=== PATIENT | female | born 1980 | race Two or more races ===

== ENCOUNTER → 2020-04-05 09:59 | Outpatient (BNVA) | payer OTHER, SELFPAY | PROVIDERS: PCP Physician Assistant; Visit Provider Surgery Vascular Surgery | DX: I83.11 Varicose veins of right lower extremity with inflammation (principal); I83.92 Asymptomatic varicose veins of left lower extremity | CPT/HCPCS: 99213 ==

== ENCOUNTER → 2020-05-04 09:40 | Outpatient (BNVA) | payer OTHER, SELFPAY | PROVIDERS: PCP Physician Assistant; Visit Provider Surgery Vascular Surgery | DX: I83.11 Varicose veins of right lower extremity with inflammation (principal) | CPT/HCPCS: 36482 ==

== ENCOUNTER 2020-05-07 13:26 | Outpatient (REF) | payer OTHER, SELFPAY ==
--- NOTE | 2020-05-07 | US_ITS ---
EXAMINATION: US VENOUS ULTRASOUND WITH DOPPLER LOWER EXTREMITY, RIGHT CLINICAL INFORMATION: Status post right leg VenaSeal. COMPARISON: None TECHNIQUE: Ultrasound of the deep veins is performed from the hip to the calf with compression sonography and color and pulse Doppler assessment. Spectral analysis with color-flow imaging is performed. FINDINGS: There is normal venous compression and respiratory variation and augmented flow. The visualized common femoral vein, superficial femoral vein, profunda femoral vein, popliteal vein, and the trifurcation region shows no evidence of deep venous thrombosis. There is no significant popliteal fossa cyst. Incidentally noted is enlarged, thrombosed varicose vein in distal thigh. There is a 1.8 cm thrombus in the greater saphenous vein approximately 1.8 cm away from the superficial femoral venous junction. US/US venous duplex LE RT IMPRESSION: Enlarged and thrombosed varicose vein in right distal thigh. No evidence of DVT. There is thrombus visualized in greater saphenous vein approximately 1.8 cm away from superficial femoral venous junction status post VenaSeal procedure.
== END 2020-05-07 13:27 | disposition home or self-care (01) ==
LOC: HO.US 13:26
PROVIDERS: PCP Physician Assistant; Visit Provider Surgery Vascular Surgery
DX: M79.604 Pain in right leg (principal)
CPT/HCPCS: 93971

== ENCOUNTER → 2020-05-17 09:52 | Outpatient (BNVA) | payer OTHER, SELFPAY | PROVIDERS: PCP Physician Assistant; Visit Provider Surgery Vascular Surgery | DX: I83.11 Varicose veins of right lower extremity with inflammation (principal); Z98.890 Other specified postprocedural states | CPT/HCPCS: 99212 ==

== ENCOUNTER 2020-05-24 09:35 | Outpatient (REF) | payer OTHER, SELFPAY ==
--- NOTE | 2020-05-24 | MM_ITS ---
EXAMINATION: MM SCREENING DIGITAL BREAST TOMOSYNTHESIS, BILATERAL CLINICAL INFORMATION: Screening. Asymptomatic. No prior breast imaging. Age 40. The lifetime risk of breast cancer based on the Tyrer-Cuzick Model is 7%. COMPARISON: None (current study represents initial baseline exam). TECHNIQUE: Digital breast tomosynthesis is performed in both the craniocaudal and mediolateral oblique views along with computer-aided detection (CAD). Synthesized 2D images are generated from the tomosynthesis. FINDINGS: There are scattered areas of fibroglandular density (ACR BI-RADS breast composition Category b). There are no significant masses, abnormal calcifications, or other abnormalities. The axilla and skin contours are unremarkable. MM/MM tomosynthesis screening BI IMPRESSION: No mammographic evidence of malignancy. ASSESSMENT: BI-RADS 1: Negative RECOMMENDATION: Routine annual mammography screening. This patient's information was entered into a reminder system with a target due date for their next mammogram.
== END 2020-05-24 09:36 | disposition home or self-care (01) ==
LOC: HO.MAMMO 09:35
PROVIDERS: PCP Physician Assistant; Visit Provider Physician Assistant
DX: Z12.31 Encounter for screening mammogram for malignant neoplasm of breast (principal)
CPT/HCPCS: 77063; 77067

== ENCOUNTER 2020-05-27 17:24 | Emergency (ER) | payer OTHER, SELFPAY ==
--- NOTE | 2020-05-27 | ECG_ITS ---
Test Reason : REPEAT Blood Pressure : / mmHG Vent. Rate : 068 BPM Atrial Rate : 068 BPM P-R Int : 146 ms QRS Dur : 090 ms QT Int : 396 ms P-R-T Axes : 057 022 020 degrees QTc Int : 421 ms Normal sinus rhythm T wave abnormality, consider anterior ischemia Abnormal ECG When compared with ECG of 27-MAY-2020 17:30, No significant change was found Referred By: Clyde Rooney Electronically Signed By:PATRICE PENA MD
--- NOTE | 2020-05-27 | XR_ITS ---
EXAMINATION: XR CHEST CLINICAL INFORMATION: Chest pain. COMPARISON: None TECHNIQUE: 2 views of the chest were obtained. FINDINGS: The lungs are clear. The cardiomediastinal silhouette is normal in size. There is no pleural effusion or pneumothorax. No acute osseous abnormality. XR/XR chest 2V IMPRESSION: No acute cardiopulmonary findings.
--- NOTE | 2020-05-27 08:45 | ECG_ITS ---
Test Reason : CHEST PAIN Blood Pressure : / mmHG Vent. Rate : 085 BPM Atrial Rate : 085 BPM P-R Int : 132 ms QRS Dur : 086 ms QT Int : 374 ms P-R-T Axes : 051 014 036 degrees QTc Int : 445 ms Normal sinus rhythm with sinus arrhythmia Nonspecific T wave abnormality Abnormal ECG When compared with ECG of 01-OCT-2014 20:25, No significant change was found Referred By: Clyde Rooney Electronically Signed By:PATRICE PENA MD
[2020-05-27 19:00] VITALS: BP 132/72; PULSE 75; RESP 16; TEMP 35.7; O2SAT 99; BMI 46.0
--- NOTE | 2020-05-27 19:59 | ED_ITS ---
HPI - Chest Pain General Chief Complaint: Chest Pain Stated Complaint: Chest Pain Time Seen by Provider: 05/27/20 19:52 Source: patient Mode of arrival: ambulatory Limitations: no limitations History of Present Illness HPI narrative: patient presents to ED for chest pain on the left side that is worse on movement. Patient denies any shortness of breath, chest pain on inspiration, coughing up blood, fever, chills, swelling of lower extremities, calf pain, recent travel, recent surgery, any recent trauma. 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 Related Data Home Medications Medication Instructions Recorded Confirmed ibuprofen 800 mg tablet 800 mg PO TID 03/31/20 Previous Rx's Medication Instructions Recorded amoxicillin 1,000 mg PO Q12H #10 tab 05/28/20 doxycycline monohydrate 100 mg PO BID #14 cap 05/28/20 Allergies Allergy/AdvReac Type Severity Reaction Status Date / Time No Known Allergies Allergy Verified 05/27/20 19:00 Review of Systems Constitutional: Constitutional: Reports as per HPI, Reports no additional constitutional complaints and Reports anorexia Eyes: Eyes: Reports as per HPI and Reports no additional eye complaints ENT: Reports system reviewed and no additional complaints, except as documented and Reports as per HPI Cardiovascular: Cardiovascular: Reports as per HPI, Reports no additional cardiovascular complaints, Denies Abdominal Cramping after Meds, Denies Abdominal Distension, Reports chest pain, Denies dyspnea, Denies dyspnea on exertion, Denies orthopnea and Denies paroxysmal nocturnal dyspnea Respiratory: Respiratory: Reports as per HPI, Reports no additional respiratory complaints, Denies chest congestion, Denies cough, Denies pain on inspiration, Denies pain with cough, Denies dyspnea and Denies dyspnea on exertion Gastrointestinal: Gastrointestinal: Reports as per HPI and Reports no additional gastrointestinal complaints Musculoskeletal: Musculoskeletal: Reports no additional musculoskeletal complaints and Reports as per HPI Neurologic: Reports system reviewed and no additional complaints, except as documented and Reports as per HPI Psychiatric: Psychiatric: Reports no additional psychiatric complaints and Reports as per HPI PMF Past Medical History Surgical History Ankle fracture, right (~2011) H/O prior ablation treatment (~04/2020) Social History Social History Advance Directives: No Advance Directives Information Provided: Yes Physical Exam Vital Signs: Vital Signs: Last Vital Signs Temp 96.2 F L 05/27/20 19:00 Pulse 68 05/28/20 00:21 Resp 16 05/27/20 20:15 BP 120/64 05/28/20 00:21 Pulse Ox 98 05/28/20 00:21 Body Mass Index 46.0 Const: General: cooperative, healthy appearing, comfortable, no acute distres s, well developed, alert, awake and Physically active Orientation/consciousness: oriented to person, oriented to place, oriented to time and patient oriented x3 HENMT: Head: Yes normal to inspection and Yes No palpable skull fracture present Eyes: General: appearance normal, both eyes and all related structures Neck: Neck: Yes normal visual inspection and Yes full ROM Chest: Other: Left upper chest wall pain is worse on movement of torso and u pper extremity Chest palpation & inspection: normal inspection of the chest and tenderness ( Positive for left upper chest wall tenderness on palpation.) Resp: Effort & Inspection: normal respiratory effort, able to speak in complete sentences, no audible wheezes and no cough Auscultation: clear to auscultation bilaterally, no crackles, no rales, no rhonchi, no wheezes and breath sounds present Cardio: Jugular venous distension: no JVD Heart sounds: S1 normal heart sound present and S2 normal heart sound present GI: Inspection: Yes normal to inspection and No abdominal wall ecchymosis Palpation (GI): not soft, not firm, nontender, no guarding and not rigid : General: No CVA tenderness and Yes no CVA tenderness Back/Spine/Pelvis: Back: no CVA tenderness, No CVA tenderness and No back tenderness Skin: General skin exam: no rashes or lesions noted Neuro: General: oriented to person, oriented to place, oriented to time, patient oriented x3, gait normal and CN's II-XI intact bilaterally Cranial nerves: Yes CN's II-XII intact bilaterally Extrem: General: Yes normal to inspection and Yes full ROM Psych: Appearance: grossly normal, well kempt and not disheveled Course Course Course Narrative: patient states chest pain on movement began around 09:00 this morning. History physical exam indicate more muscular chest wall pain. Muscular chest wall strain. Patient will have EKG and basic labs including troponin. Not suspecting PE. PERC score is 0. Reevaluation(s) Reevaluation #1: Evaluation of patient's chart she had ultrasoundon on the 2nd of this month which showed great saphenous thrombus. D-dimer was elevated. So patient will be sent for chest CT a period Time: 22:29 Reevaluation #2: chest CT came back positive for pneumonia. Chest CT negative for PE. patient is swabbed for COVID-19. Patieint's chest pain resolved with toradol. Time: 23:56 MDM - Chest Pain MDM Narrative Medical decision making narrative: pneumonia Lab Data Result diagrams: 05/27/20 20:25 05/27/20 20:25 Labs: Lab Results 05/27/20 05/27/20 05/27/20 Range/Units 20:25 20:25 20:25 WBC 7.2 (4.8-10.8) X10*3/uL RBC 4.67 (4.20-5.50) X10*6/uL Hgb 13.3 (12.0-16.0) g/dl Hct 41.1 (37-47) % MCV 88.0 (80-98) fL MCH 28.5 (27.0-33.0) pg MCHC 32.4 (31.0-35.0) g/dl RDW 13.4 (11.0-16.0) % Plt Count 245 (160-400) X10*3/uL MPV 11.4 (9.4-12.3) fL Immature Gran % (Auto) 0.3 (0.0-0.4) % Neut % (Auto) 61.0 (45-73) % Lymph % (Auto) 30.2 (20-40) % [place] % (Auto) 7.5 (2-11) % Eos % (Auto) 0.6 (0-4) % Baso % (Auto) 0.4 (0-2) % Lymph # (Auto) 2.2 (1.2-4.9) X10*3/uL [place] # (Auto) 0.5 (0.1-1.2) X10*3/uL Eos # (Auto) 0.0 (0.0-0.4) X10*3/uL Baso # (Auto) 0.0 (0.0-0.2) X10*3/uL Abs Immat Gran (auto) 0.02 (0.00-0.03) X10*3/uL Absolute Neuts (auto) 4.4 (2.0-8.3) X10*3/uL Absolute Nucleated RBC 0.000 (0.0-0.012) X10*3/uL Nucleated RBC % (auto) 0.0 (0.0-0.2) /100WBC PT 11.8 (10.8-13.0) SEC INR 1.0 (0.9-1.1) APTT 32.8 (24.1-38.0) SEC D-Dimer 335 NG/ML Sodium 141 (135-145) mmol/L Potassium 3.9 (3.3-5.1) mmol/l Chloride 107 (96-108) mmol/L Carbon Dioxide 27 (22-29) mmol/L Anion Gap 11 L (12-20) BUN 15 (9-16) mg/dL Creatinine 0.78 (0.5-1.4) mg/dL Estim Creat Clear Calc 116.5 Estimated GFR > 60 Random Glucose 91 (60-115) mg/dL Calcium 8.9 (8.4-10.2) mg/dL Total Bilirubin 0.3 (0.0-1.0) mg/dL AST 12 (5-31) U/L ALT 13 (0-31) U/L Alkaline Phosphatase 65 (39-117) U/L Troponin I High Sens (<3.5-17.0) ng/L Total Protein 6.7 (6.5-8.0) g/dL Albumin 4.0 (3.5-5.0) g/dL Beta HCG, Quant mIU/mL 05/27/20 05/27/20 Range/Units 20:25 20:25 WBC (4.8-10.8) X10*3/uL RBC (4.20-5.50) X10*6/uL Hgb (12.0-16.0) g/dl Hct (37-47) % MCV (80-98) fL MCH (27.0-33.0) pg MCHC (31.0-35.0) g/dl RDW (11.0-16.0) % Plt Count (160-400) X10*3/uL MPV (9.4-12.3) fL Immature Gran % (Auto) (0.0-0.4) % Neut % (Auto) (45-73) % Lymph % (Auto) (20-40) % [place] % (Auto) (2-11) % Eos % (Auto) (0-4) % Baso % (Auto) (0-2) % Lymph # (Auto) (1.2-4.9) X10*3/uL [place] # (Auto) (0.1-1.2) X10*3/uL Eos # (Auto) (0.0-0.4) X10*3/uL Baso # (Auto) (0.0-0.2) X10*3/uL Abs Immat Gran (auto) (0.00-0.03) X10*3/uL Absolute Neuts (auto) (2.0-8.3) X10*3/uL Absolute Nucleated RBC (0.0-0.012) X10*3/uL Nucleated RBC % (auto) (0.0-0.2) /100WBC PT (10.8-13.0) SEC INR (0.9-1.1) APTT (24.1-38.0) SEC D-Dimer NG/ML Sodium (135-145) mmol/L Potassium (3.3-5.1) mmol/l Chloride (96-108) mmol/L Carbon Dioxide (22-29) mmol/L Anion Gap (12-20) BUN (9-16) mg/dL Creatinine (0.5-1.4) mg/dL Estim Creat Clear Calc Estimated GFR Random Glucose (60-115) mg/dL Calcium (8.4-10.2) mg/dL Total Bilirubin (0.0-1.0) mg/dL AST (5-31) U/L ALT (0-31) U/L Alkaline Phosphatase (39-117) U/L Troponin I High Sens < 3.5 (<3.5-17.0) ng/L Total Protein (6.5-8.0) g/dL Albumin (3.5-5.0) g/dL Beta HCG, Quant < 2 mIU/mL ECG Data ECG #1: Interpretation: normal sinus rhythm. Ventricular rate 68. Pr interval 146. QRS 90. T-wave inversions in anterior leads has been there since EKG in 2015. no new changes Discharge Plan Discharge Clinical Impression: Pneumonia Patient Disposition: Home, Self-Care Instructions: Pneumonia (ED) Additional Instructions: return to the ED for any chest pain, shortness of breath, coughing up blood, swelling of lower extremities, fever, chills, or any other concerning symptoms. recommend 14 days self-isolation if COVID test come back positive. If patient symptoms worsen please practice 14 days self-isolation and retesting if necessary. Prescriptions: New amoxicillin 500 mg tablet 1,000 mg PO Q12H Qty: 10 RF: 0 doxycycline monohydrate 100 mg capsule 100 mg PO BID Qty: 14 RF: 0 Referrals: Po,Sergio Razo MD [Primary Care Provider] - 2 days ( chest CT shows pneumonia. COVID swab pending) Stand Alone Forms: Work/School Release Interventions: ED Discharge Assessment Last Done: 05/28/20 00:28 Print Language: Welsh
--- NOTE | 2020-05-27 20:06 | XR_ITS ---
EXAMINATION: XR CHEST CLINICAL INFORMATION: Chest pain with movement. COMPARISON: Chest radiograph done earlier the same day. TECHNIQUE: Frontal view of the chest was obtained. FINDINGS: No significant abnormality is noted involving the heart, lungs, mediastinum, bony thorax or soft tissues. XR/XR chest 1V IMPRESSION: Unremarkable examination.
[2020-05-27 20:15] VITALS: BP 127/61; PULSE 73; RESP 16; O2SAT 98
[2020-05-27 20:33] LABS: MANUAL DIFF FLAG NO
[2020-05-27 20:34] LABS: Basophils Percent Auto 0.4 % (0-2); Eosinophils Percent Auto 0.6 % (0-4); Hematocrit 41.1 % (37-47); Hemoglobin 13.3 g/dl (12.0-16.0); Imm Gran Abs Auto 0.02 X10*3/uL (0.00-0.03); Imm Gran Pct Auto 0.3 % (0.0-0.4); Lymphocytes Absolute Auto 2.2 X10*3/uL (1.2-4.9); Lymphocytes Percent Auto 30.2 % (20-40); Mean Corpuscular HGB Conc 32.4 g/dl (31.0-35.0); Mean Corpuscular Hemoglobin 28.5 pg (27.0-33.0); Mean Platelet Volume 11.4 fL (9.4-12.3); Monocytes Absolute Auto 0.5 X10*3/uL (0.1-1.2); Monocytes Percent Auto 7.5 % (2-11); Neutrophils Absolute Auto 4.4 X10*3/uL (2.0-8.3); Platelet Count 245 X10*3/uL (160-400); Red Blood Count 4.67 X10*6/uL (4.20-5.50); Red Cell Distribution Width 13.4 % (11.0-16.0); White Blood Count 7.2 X10*3/uL (4.8-10.8)
[2020-05-27 20:43] LABS: Prothrombin Time 11.8 SEC (10.8-13.0)
[2020-05-27 20:45] LABS: Partial Thromboplastin Time 32.8 SEC (24.1-38.0)
[2020-05-27 20:57] LABS: Alanine Aminotransferase 13 U/L (0-31); Alkaline Phosphatase 65 U/L (39-117); Anion Gap 11 (12-20); Aspartate Amino Transferase 12 U/L (5-31); Bilirubin Total 0.3 mg/dL (0.0-1.0); Blood Urea Nitrogen 15 mg/dL (9-16); Calcium 8.9 mg/dL (8.4-10.2); Carbon Dioxide 27 mmol/L (22-29); Chloride 107 mmol/L (96-108); Creatinine Clr Calc Pharmacy 116.5; Estimated Glomerular Filt Rate > 60; Glucose Random 91 mg/dL (60-115); Potassium 3.9 mmol/l (3.3-5.1); Sodium 141 mmol/L (135-145); Total Protein 6.7 g/dL (6.5-8.0)
[2020-05-27 21:03] LABS: Troponin-I High Sensitivity < 3.5 ng/L (<3.5-17.0)
[2020-05-27 21:20] LABS: D Dimer 335 NG/ML; HCG Quantitative < 2 mIU/mL
--- NOTE | 2020-05-27 21:59 | CT_ITS ---
EXAMINATION: CT ANGIOGRAM CHEST WITH AND WITHOUT CONTRAST (CT PULMONARY ANGIOGRAM FOR PE) CLINICAL INFORMATION: Elevated D-dimer. Chest pain. Evaluate for a pulmonary embolism. COMPARISON: Chest radiograph done earlier the same day. TECHNIQUE: Prior to contrast administration, noncontrast localization images were obtained. Subsequently, multidetector volumetric imaging was performed from the thoracic inlet to below the diaphragms following the administration of 65 mL Omnipaque 350 intravenous contrast. No contrast reaction reported. Sagittal, coronal, and MIP oblique sagittal reformatted images were obtained on the CT workstation, uploaded to PACS, and reviewed. This CT examination was performed using dose optimization techniques as appropriate, variously including the following: *Automated exposure control. *Adjustment of mA and/or kV according to patient size (this includes techniques or standardized protocols for targeted exams where dose is matched to indication/reason for exam; i.e. extremities or head). *Use of iterative reconstruction technique. Total exam dose-length product 257 mGy-cm. FINDINGS: QUALITY OF STUDY/CONTRAST BOLUS: Suboptimal. PULMONARY ARTERIES: No central or segmental pulmonary emboli. THORACIC AORTA: No aneurysm or dissection. LUNG: Patchy ground-glass airspace opacities within the right lower lobe. Findings could represent an infectious or inflammatory process. The left lung is clear. Tiny left lower lobe calcified granulomas. No additional pulmonary nodule or mass. PLEURA: No pleural effusion or pneumothorax. MEDIASTINUM: No cardiomegaly. No pericardial effusion. Mildly enlarged posterior right hilar lymph node measuring 1.1 x 1.5 cm (axial image 24/54). No additional significant superior mediastinal or hilar lymphadenopathy. No evidence of septal bowing or right heart strain. CHEST WALL/AXILLA: No axillary or internal mammary lymphadenopathy. OSSEOUS STRUCTURES: No acute or suspicious osseous abnormality. UPPER ABDOMEN: Unremarkable. No reflux of contrast into the hepatic veins to suggest elevated right heart pressures. CT/CT angio chest PE protocol IMPRESSION: 1. No central or segmental pulmonary embolism. 2. Patchy ground-glass airspace opacities within the right lower lobe. Findings may represent an infectious or inflammatory process. Differential diagnosis includes early viral pneumonia. 3. Prominent right hilar lymph node measuring up to 1.1 x 1.5 cm, likely reactive to the right lower lobe pulmonary pathology. VTE: Negative.
[2020-05-27 22:00] VITALS: BP 124/61; PULSE 66; O2SAT 97
[2020-05-27] MEDS: iohexoL 350 MG/ML 100 ML INFUS..BTL IV (22:34)
--- NOTE | 2020-05-27 22:43 | PC.NURSE ---
PT REMAINS ALERT AND STATES MY PAIN IS NOT ANY WORSE . PT REMAINS ON MONITOR WITH HR 67. PT AWAITING FOR U/S.
[2020-05-27 22:44] VITALS: PULSE 69
[2020-05-27] MEDS: Ketorolac Tromethamine 30 MG/ML VIAL IVPUSH (23:05)
[2020-05-28 00:21] VITALS: BP 120/64; PULSE 68; O2SAT 98
== END 2020-05-28 00:28 | disposition home or self-care (01) ==
PROVIDERS: Physician Assistant; Emergency Provider Emergency Medicine; PCP Internal Medicine
DX: J18.9 Pneumonia, unspecified organism (principal); R07.9 Chest pain, unspecified; R05 Cough; Z20.828 Contact with and (suspected) exposure to other viral communicable diseases; Z79.899 Other long term (current) drug therapy
CPT/HCPCS: 36415; 71045; 71046; 71275; 80053; 84484; 84702; 85025; 85379; 85610; 85730; 93005; 96374; 99284; J1885; Q9967; U0003

== ENCOUNTER 2020-09-04 09:14 | Outpatient (REF) | payer OTHER, SELFPAY ==
[2020-09-05 20:37] LABS: C. trachomatis RNA TMA NOT DETECTED (NOT DETECTED); N. gonorrhoeae RNA TMA NOT DETECTED (NOT DETECTED)
== END 2020-09-04 09:15 | disposition home or self-care (01) ==
LOC: HO.LAB 09:14
PROVIDERS: PCP Physician Assistant; Visit Provider Obstetrics & Gynecology
DX: Z01.419 Encounter for gynecological examination (general) (routine) without abnormal findings (principal); Z20.2 Contact with and (suspected) exposure to infections with a predominantly sexual mode of transmission
CPT/HCPCS: 36415; 87491; 87591

== ENCOUNTER → 2020-09-25 07:45 | Outpatient (BNVA) | payer OTHER, SELFPAY | PROVIDERS: PCP Physician Assistant; Visit Provider Obstetrics & Gynecology | DX: O20.9 Hemorrhage in early pregnancy, unspecified (principal) | CPT/HCPCS: 99212 ==

== ENCOUNTER 2020-09-25 08:55 | Outpatient (REF) | payer OTHER, SELFPAY ==
--- NOTE | ~2020-09-25 | US_ITS ---
EXAMINATION: US OBSTETRICAL ULTRASOUND CLINICAL INFORMATION: Hemorrhage in early COMPARISON: None. LMP: 08/11/2020. Gestational age by maternal dates is 26 weeks 3 days. Estimated date of delivery by maternal dates is 05/18/2021. TECHNIQUE: Transabdominal and transvaginal pelvic ultrasound was performed. Transvaginal exam was performed for better visualization of the uterus and ovaries. FINDINGS: The uterus is normal in size and shape measures 10.3 x 5 x 5.5 cm in sagittal AP and transverse dimension. No intrauterine gestational sac is seen. Endometrial thickness measures 1.3 cm. No focal uterine lesion is seen. There are nabothian cysts in the cervix. The ovaries are normal-appearing. The ovaries are seen transabdominally only. The right ovary measures 3.1 x 1.5 x 1.6 cm and the left ovary measures 2.2 x 1.5 x 1.2 cm. There is trace fluid in the pelvis. US/US OB <= 14 weeks fetus IMPRESSION: No intrauterine seen. Normal-appearing ovaries. Trace fluid in the pelvis. Differential would include a very early intrauterine , ectopic and spontaneous . Correlation with quantitative beta hCG and follow-up OB ultrasound recommended.
--- NOTE | ~2020-09-25 | US_ITS ---
EXAMINATION: US OBSTETRICAL ULTRASOUND CLINICAL INFORMATION: Hemorrhage in early COMPARISON: None. LMP: 08/11/2020. Gestational age by maternal dates is 26 weeks 3 days. Estimated date of delivery by maternal dates is 05/18/2021. TECHNIQUE: Transabdominal and transvaginal pelvic ultrasound was performed. Transvaginal exam was performed for better visualization of the uterus and ovaries. FINDINGS: The uterus is normal in size and shape measures 10.3 x 5 x 5.5 cm in sagittal AP and transverse dimension. No intrauterine gestational sac is seen. Endometrial thickness measures 1.3 cm. No focal uterine lesion is seen. There are nabothian cysts in the cervix. The ovaries are normal-appearing. The ovaries are seen transabdominally only. The right ovary measures 3.1 x 1.5 x 1.6 cm and the left ovary measures 2.2 x 1.5 x 1.2 cm. There is trace fluid in the pelvis. US/US OB transvaginal IMPRESSION: No intrauterine seen. Normal-appearing ovaries. Trace fluid in the pelvis. Differential would include a very early intrauterine , ectopic and spontaneous . Correlation with quantitative beta hCG and follow-up OB ultrasound recommended.
[2020-09-25 10:37] LABS: HCG Quantitative 89 mIU/mL
== END 2020-09-25 08:56 | disposition home or self-care (01) ==
LOC: HO.US 08:55
PROVIDERS: PCP Physician Assistant; Visit Provider Obstetrics & Gynecology
DX: O20.9 Hemorrhage in early pregnancy, unspecified (principal)
CPT/HCPCS: 36415; 76801; 76817; 84702; 99212

== ENCOUNTER 2020-09-27 09:34 | Outpatient (REF) | payer OTHER, SELFPAY ==
[2020-09-27 11:24] LABS: Alanine Aminotransferase 8 U/L (0-31); Alkaline Phosphatase 62 U/L (39-117); Anion Gap 14 (12-20); Aspartate Amino Transferase 9 U/L (5-31); Bilirubin Total 0.5 mg/dL (0.0-1.0); Blood Urea Nitrogen 12 mg/dL (9-16); Carbon Dioxide 23 mmol/L (22-29); Chloride 106 mmol/L (96-108); Cholesterol 244 mg/dL; Estimated Glomerular Filt Rate > 60; Glucose Fasting 84 mg/dL (60-99); HCG Quantitative 137 mIU/mL; HDL Cholesterol 53 mg/dL; LDL Cholesterol Calculated 173 mg/dl; Sodium 139 mmol/L (135-145); Total Protein 6.7 g/dL (6.5-8.0); Triglycerides 92 mg/dL
[2020-09-28 10:04] LABS: CT PCR NOT DETECTED (Not Detect.); NG PCR NOT DETECTED (Not Detect.)
== END 2020-09-27 09:35 | disposition home or self-care (01) ==
LOC: HO.LAB 09:34
PROVIDERS: Obstetrics & Gynecology; PCP Physician Assistant; Visit Provider Obstetrics & Gynecology
DX: O36.80X0 Pregnancy with inconclusive fetal viability, not applicable or unspecified (principal); Z3A.00 Weeks of gestation of pregnancy not specified; Z20.2 Contact with and (suspected) exposure to infections with a predominantly sexual mode of transmission
CPT/HCPCS: 36415; 80053; 80061; 84702; 87491; 87591

== ENCOUNTER 2020-10-01 06:21 | Outpatient (REF) | payer OTHER, SELFPAY ==
[2020-10-01 08:32] LABS: HCG Quantitative 185 mIU/mL
[2020-10-01 08:45] LABS: Alanine Aminotransferase 11 U/L (0-31); Albumin Level 3.9 g/dL (3.5-5.0); Alkaline Phosphatase 61 U/L (39-117); Anion Gap 13 (12-20); Aspartate Amino Transferase 10 U/L (5-31); Bilirubin Total 0.7 mg/dL (0.0-1.0); Blood Urea Nitrogen 10 mg/dL (9-16); Calcium 8.7 mg/dL (8.4-10.2); Carbon Dioxide 23 mmol/L (22-29); Chloride 107 mmol/L (96-108); Cholesterol 235 mg/dL; Estimated Glomerular Filt Rate > 60; Glucose Fasting 72 mg/dL (60-99); HDL Cholesterol 52 mg/dL; LDL Cholesterol Calculated 165 mg/dl; Potassium 4.1 mmol/L (3.3-5.1); Sodium 139 mmol/L (135-145); Total Protein 6.6 g/dL (6.5-8.0); Triglycerides 94 mg/dL
== END 2020-10-01 06:22 | disposition home or self-care (01) ==
LOC: HO.LAB 06:21
PROVIDERS: PCP Physician Assistant; Visit Provider Obstetrics & Gynecology
DX: O36.80X0 Pregnancy with inconclusive fetal viability, not applicable or unspecified (principal); O99.280 Endocrine, nutritional and metabolic diseases complicating pregnancy, unspecified trimester; E78.2 Mixed hyperlipidemia; Z3A.00 Weeks of gestation of pregnancy not specified
CPT/HCPCS: 36415; 80053; 80061; 84702

== ENCOUNTER 2020-10-03 06:20 | Outpatient (REF) | payer OTHER, SELFPAY ==
[2020-10-03 07:38] LABS: HCG Quantitative 244 mIU/mL
== END 2020-10-03 06:21 | disposition home or self-care (01) ==
LOC: HO.LAB 06:20
PROVIDERS: PCP Physician Assistant; Visit Provider Obstetrics & Gynecology
DX: O36.80X0 Pregnancy with inconclusive fetal viability, not applicable or unspecified (principal); O09.512 Supervision of elderly primigravida, second trimester; Z3A.01 Less than 8 weeks gestation of pregnancy
CPT/HCPCS: 36415; 84702

== ENCOUNTER → 2020-10-10 15:02 | Outpatient (BNVA) | payer OTHER, SELFPAY | PROVIDERS: Visit Provider Obstetrics & Gynecology | DX: O36.80X0 Pregnancy with inconclusive fetal viability, not applicable or unspecified (principal) | CPT/HCPCS: 99212 ==

== ENCOUNTER 2020-10-11 08:30 | Day surgery (SDC) | payer OTHER, SELFPAY ==
--- NOTE | 2020-10-10 10:34 | P.CONAN_ITS ---
Documented by User: Tatum Rodriguez 10/10/20 10:37 HPI - Anesthesia Eval Consult details Narrative: 40yo F for D&C Suction PMFSH Active Problems Active Problems: All Active Problems (Updated 10/10/20 @ 08:25 by Hawa Whipple MD) , location unknown (Acute) Family planning (Acute) Well woman exam (Acute) Obese (Acute) HLD (hyperlipidemia) (Acute) Annual physical exam (Acute) Varicose veins of right lower extremity with inflammation (Acute) Past Medical History Medical History (Updated 10/11/20 @ 11:19 by Paty Turk) Increased BMI Family History Family History Father Hypertension Mother Diabetes Maternal Grandmother Stomach cancer Maternal Grandfather No problems noted. Paternal Grandmother No problems noted. Paternal Grandfather Lung cancer Surgical History Surgical History Ankle fracture, right (~2011) H/O prior ablation treatment (~04/2020) History of section Social History Social History Alcohol intake: current Alcohol intake frequency: holidays/special occasions only Smoking Status: Never smoker Use of substances other than those prescribed or required for medical reasons: No Advance Directives: No Advance Directives Information Provided: Yes Gender identity: female Meds Allergies Allergy/AdvReac Type Severity Reaction Status Date / Time No Known Allergies Allergy Verified 10/10/20 15:08 Exam Exam Date and Time: October 10, 2020 1034 Pertinent Lab Results Pertinent Lab Results: Laboratory Tests 05/27/20 10/01/20 20:25 06:40 WBC 7.2 Hgb 13.3 Hct 41.1 Plt Count 245 Sodium 139 Potassium 4.1 Chloride 107 Carbon Dioxide 23 BUN 10 Creatinine 0.86 Narrative Narrative: EKG 05/2020 Vent. Rate : 085 BPM Atrial Rate : 085 BPM P-R Int : 132 ms QRS Dur : 086 ms QT Int : 374 ms P-R-T Axes : 051 014 036 degrees QTc Int : 445 ms Normal sinus rhythm with sinus arrhythmia Nonspecific T wave abnormality Abnormal ECG When compared with ECG of 01-OCT-2014 20:25, No significant change was found Assessment and Plan Assessment Anesthesia Assessment: Chart Reviewed Documented by User: Paty Turk 10/11/20 11:19 PMFSH Past Medical History Medical History (Updated 10/11/20 @ 11:19 by Paty Turk) Increased BMI Family History Family History Father Hypertension Mother Diabetes Maternal Grandmother Stomach cancer Maternal Grandfather No problems noted. Paternal Grandmother No problems noted. Paternal Grandfather Lung cancer Family history of problems with anesthesia: No Surgical History Surgical History Ankle fracture, right (~2011) H/O prior ablation treatment (~04/2020) History of section History of Problems with Anesthesia: No Social History Social History Alcohol intake: current Alcohol intake frequency: holidays/special occasions only Smoking Status: Never smoker Use of substances other than those prescribed or required for medical reasons: No Advance Directives: No Advance Directives Information Provided: Yes Gender identity: female Meds Allergies Allergy/AdvReac Type Severity Reaction Status Date / Time No Known Allergies Allergy Verified 10/10/20 15:08 Exam Exam Date and Time: Height 5 ft 3 in Weight 122.47 kg Vital Signs Temp Pulse Resp BP Pulse Ox 10/11/20 09:54 97.5 F 76 18 126/63 99 Pertinent Lab Results Pertinent Lab Results: Lab Results 10/11/20 10/11/20 10/11/20 Range/Units 09:58 09:58 09:58 WBC 4.0 L (4.8-10.8) X10*3/uL RBC 4.67 (4.20-5.50) X10*6/uL Hgb 13.4 (12.0-16.0) g/dl Hct 41.7 (37-47) % MCV 89.3 (80-98) fL MCH 28.7 (27.0-33.0) pg MCHC 32.1 (31.0-35.0) g/dl RDW 13.3 (11.0-16.0) % Plt Count 159 L D (160-400) X10*3/uL MPV 11.9 (9.4-12.3) fL Immature Gran % (Auto) 0.2 (0.0-0.4) % Neut % (Auto) 53.6 (45-73) % Lymph % (Auto) 33.7 (20-40) % [place] % (Auto) 11.5 H (2-11) % Eos % (Auto) 0.5 (0-4) % Baso % (Auto) 0.5 (0-2) % Lymph # (Auto) 1.4 (1.2-4.9) X10*3/uL [place] # (Auto) 0.5 (0.1-1.2) X10*3/uL Eos # (Auto) 0.0 (0.0-0.4) X10*3/uL Baso # (Auto) 0.0 (0.0-0.2) X10*3/uL Abs Immat Gran (auto) 0.01 (0.00-0.03) X10*3/uL Absolute Neuts (auto) 2.2 (2.0-8.3) X10*3/uL Absolute Nucleated RBC 0.000 (0.0-0.012) X10*3/uL Nucleated RBC % (auto) 0.0 (0.0-0.2) /100WBC BUN 8 L (9-16) mg/dL Creatinine 0.80 (0.5-1.4) mg/dL Estim Creat Clear Calc 116.3 Estimated GFR > 60 AST 14 (5-31) U/L ALT 16 (0-31) U/L Blood Type O Positive Antibody Screen NEGATIVE Airway Mallampati Class: II TM Dist: >3cm Neck ROM: Full Loose/Missing/Broken Teeth: Yes (Extractions) Heart: RRR Lungs: CTAB Assessment and Plan Assessment Anesthesia Assessment: Anesthesia Plan Discussed and Chart Reviewed Final Anesthetic Review NPO: Yes ASA Class: III Final Preanesthetic Review: No Changes in Pt Med Stat, Meds/Allgs Chart Reviewed, Consent Obtained/Reviewed and Anes Risks/Benef Reviewed Patient Risk: Intermediate Procedure Risk: Low Assessment/Block/Sedation in SS: Assess/Block/Sedation-SS Anesthetic Plan Anesthetic Plan: GA Disposition: Standard PACU
[2020-10-11] VITALS (7 sets, daily range): BP systolic 126–145; BP diastolic 63–86; PULSE 69–112; RESP 14–67; TEMP 36.4–36.5; O2SAT 97–100; BMI 47.8
[2020-10-11 10:03] LABS: MANUAL DIFF FLAG NO
[2020-10-11 10:08] LABS: Basophils Percent Auto 0.5 % (0-2); Eosinophils Percent Auto 0.5 % (0-4); Hematocrit 41.7 % (37-47); Hemoglobin 13.4 g/dl (12.0-16.0); Imm Gran Abs Auto 0.01 X10*3/uL (0.00-0.03); Imm Gran Pct Auto 0.2 % (0.0-0.4); Lymphocytes Absolute Auto 1.4 X10*3/uL (1.2-4.9); Lymphocytes Percent Auto 33.7 % (20-40); Mean Corpuscular HGB Conc 32.1 g/dl (31.0-35.0); Mean Corpuscular Hemoglobin 28.7 pg (27.0-33.0); Mean Corpuscular Volume 89.3 fL (80-98); Mean Platelet Volume 11.9 fL (9.4-12.3); Monocytes Absolute Auto 0.5 X10*3/uL (0.1-1.2); Monocytes Percent Auto 11.5 % (2-11); Neutrophils Absolute Auto 2.2 X10*3/uL (2.0-8.3); Neutrophils Percent Auto 53.6 % (45-73); Platelet Count 159 X10*3/uL (160-400); Red Blood Count 4.67 X10*6/uL (4.20-5.50); Red Cell Distribution Width 13.3 % (11.0-16.0)
[2020-10-11] MEDS: Lactated Ringers 1,000 ML 100 ML IVCONT (10:24)
[2020-10-11 10:35] LABS: Alanine Aminotransferase 16 U/L (0-31); Aspartate Amino Transferase 14 U/L (5-31); Blood Urea Nitrogen 8 mg/dL (9-16); Creatinine Clr Calc Pharmacy 116.3; Estimated Glomerular Filt Rate > 60
--- NOTE | 2020-10-11 10:51 | MHC.SHP ---
Pre-Procedural Eval Section A The patient is an INPATIENT: No Changes since office visit: No Cold of Flu in the past 2 weeks, No New Medical Problems, No Changes in Medication and No Patient answered all questions The History & Physical has been completed within 30 days and I have reviewed it.: Yes Section B Chief Complaint: hemorrhage in early Allergies: Allergies Allergy/AdvReac Type Severity Reaction Status Date / Time No Known Allergies Allergy Verified 10/10/20 15:08 Plan I have reviewed the history and physical and performed a pertinent physical examination on my patient. No changes have occurred unless specified.
--- NOTE | 2020-10-11 11:38 | P.OP_ITS ---
Operative Note Operative Note Date of Service: 10/11/20 Narrative: Preoperative Diagnosis: Abnormal of [facility] location Postoperative Diagnosis: Same as pre-op Procedure performed: Suction dilation and curettage Anesthesia: IV sedation Specimen: Endometrial curettings Complications: None Disposition: PACU Ms. Gautam is a 43yo . She has been followed with serial bHCGs after US at [place] 6 3/7wks based on LMP did not show a , either intrauterine or ectopic. She had an initial normal rise in bHCG level; however two subsequent repeats showed an abnormal rise (89, 137, 185, 244). Additionally, she has had intermittent spotting. She was counseled that an abnormal rise in bHCG is not diagnostic of an abnormal ; however in 99% of normal pregnancies, the hormone level rises in a predictable way. Her abnormal rise in combination with her spotting is highly concerning for abnormal , and in particular a possible ectopic . Surgical Risks: The patient was informed of the risks and benefits of the procedure Risks included but were not limited to bleeding, infection, injury to the vulva, vagina, or cervix, and uterine perforation (with possible injury to intrapelvic organs and need for diagnostic laparoscopy or laparotomy). The lynsey ent expressed understanding of the risks involved, all questions were answered, and the patient consented to the procedure. The patient was taken to the operating room where a time out was performed to confirm correct patient and correct procedure. The patient was given preoperative antibiotics per ACOG guidelines (200mg doxycycline PO). Adequte IV sedation was established. The patient was then positioned on the operating table in the dorsal lithotomy position with the legs supported in stirrups. All pressure points were padded and a warm blanket was placed to maintain core body temperature. The patient was then prepped and draped in the usual sterile fashion.A straight catheter was inserted into the bladder and 500mL of urine was obtained. A bimanual exam was performed and the uterus was found to be anteverted, approximately 8wk size. A bivalve speculum was inserted into the vagina and the cervix was visualized and grasped using the single tooth tenaculum. The uterus was was then adequately dilated using Maynard dilators for the introduction of the 7mm suction curette. The suction curette was advanced to the fundus and then suction was applied and the curette was rotated in a circular fashion as the curette was withdrawn. The suction was relieved at the internal os and the curette was again advanced to the fundus. This was repeated until no products were obtained. The suction curette was withdrawn and a sharp curette was advanced to the fundus. The uterus was curetted in a systematic manner covering all surfaces until a gritty texture was noted throughout. The suction curette was introduced one final time and the uterine cavity was cleared of any remaining products or curettings. The suction curette was then withdrawn and the single tooth tenaculum was removed from the anterior lip of the cervix. Good hemostasis was noted. The bivalve speculum was then removed from the vagina. The specimen was sent to pathology for frozen specimen with plans for the patient to receive methotrexate prior to leaving the hospital if no products of conception identified. At completion of the procedure, all needle, sponge, and instrument counts were noted to be correct x2. The patient tolerated the procedure well and was transferred to the recovery room in stable condition.
== END 2020-10-11 09:30 | disposition home or self-care (01) ==
LOC: HO.SSS 08:30
PROVIDERS: PCP Physician Assistant; Visit Provider Obstetrics & Gynecology
PROC: (CPT 58120; principal; 2020-10-11 10:40)
DX: O20.9 Hemorrhage in early pregnancy, unspecified (principal); O36.80X0 Pregnancy with inconclusive fetal viability, not applicable or unspecified; Z3A.01 Less than 8 weeks gestation of pregnancy
CPT/HCPCS: 58120; 36415; 82565; 84450; 84460; 84520; 85025; 86850; 86900; 88305; 88331; J1100; J1885; J2250; J2405; J9250

== ENCOUNTER 2020-10-15 15:19 | Outpatient (REF) | payer OTHER, SELFPAY ==
[2020-10-15 17:13] LABS: HCG Quantitative 2062 mIU/mL
== END 2020-10-15 15:20 | disposition home or self-care (01) ==
LOC: HO.LAB 15:19
PROVIDERS: PCP Physician Assistant; Visit Provider Obstetrics & Gynecology
DX: O00.90 Unspecified ectopic pregnancy without intrauterine pregnancy (principal)
CPT/HCPCS: 36415; 84702

== ENCOUNTER 2020-10-17 06:20 | Outpatient (REF) | payer OTHER, SELFPAY ==
[2020-10-17 07:12] LABS: MANUAL DIFF FLAG NO
[2020-10-17 07:15] LABS: Basophils Percent Auto 0.5 % (0-2); Eosinophils Absolute Auto 0.1 X10*3/uL (0.0-0.4); Eosinophils Percent Auto 1.1 % (0-4); Hematocrit 40.1 % (37-47); Hemoglobin 12.9 g/dl (12.0-16.0); Imm Gran Abs Auto 0.02 X10*3/uL (0.00-0.03); Imm Gran Pct Auto 0.3 % (0.0-0.4); Lymphocytes Absolute Auto 2.4 X10*3/uL (1.2-4.9); Lymphocytes Percent Auto 39.1 % (20-40); Mean Corpuscular HGB Conc 32.2 g/dl (31.0-35.0); Mean Corpuscular Hemoglobin 28.7 pg (27.0-33.0); Mean Corpuscular Volume 89.1 fL (80-98); Mean Platelet Volume 11.9 fL (9.4-12.3); Monocytes Absolute Auto 0.2 X10*3/uL (0.1-1.2); Monocytes Percent Auto 3.9 % (2-11); Neutrophils Absolute Auto 3.4 X10*3/uL (2.0-8.3); Neutrophils Percent Auto 55.1 % (45-73); Platelet Count 200 X10*3/uL (160-400); Red Cell Distribution Width 12.8 % (11.0-16.0); White Blood Count 6.1 X10*3/uL (4.8-10.8)
[2020-10-17 07:50] LABS: Alanine Aminotransferase 26 U/L (0-31); Aspartate Amino Transferase 13 U/L (5-31)
[2020-10-17 07:55] LABS: HCG Quantitative 1830 mIU/mL
== END 2020-10-17 06:21 | disposition home or self-care (01) ==
LOC: HO.LAB 06:20
PROVIDERS: PCP Physician Assistant; Visit Provider Obstetrics & Gynecology
DX: O36.80X0 Pregnancy with inconclusive fetal viability, not applicable or unspecified (principal); O00.90 Unspecified ectopic pregnancy without intrauterine pregnancy
CPT/HCPCS: 36415; 84450; 84460; 84702; 85025

== ENCOUNTER 2020-10-24 06:12 | Outpatient (REF) | payer OTHER, SELFPAY ==
[2020-10-24 08:40] LABS: HCG Quantitative 705 mIU/mL
== END 2020-10-24 06:13 | disposition home or self-care (01) ==
LOC: HO.LAB 06:12
PROVIDERS: PCP Physician Assistant; Visit Provider Obstetrics & Gynecology
DX: O09.529 Supervision of elderly multigravida, unspecified trimester (principal); O00.90 Unspecified ectopic pregnancy without intrauterine pregnancy; O36.80X0 Pregnancy with inconclusive fetal viability, not applicable or unspecified; Z3A.00 Weeks of gestation of pregnancy not specified
CPT/HCPCS: 36415; 84702

== ENCOUNTER 2020-11-02 06:23 | Outpatient (REF) | payer OTHER, SELFPAY ==
[2020-11-02 08:42] LABS: HCG Quantitative 315 mIU/mL
== END 2020-11-02 06:24 | disposition home or self-care (01) ==
LOC: HO.LAB 06:23
PROVIDERS: PCP Physician Assistant; Visit Provider Obstetrics & Gynecology
DX: O00.90 Unspecified ectopic pregnancy without intrauterine pregnancy (principal)
CPT/HCPCS: 36415; 84702

== ENCOUNTER 2020-11-16 06:13 | Outpatient (REF) | payer OTHER, SELFPAY ==
[2020-11-16 07:56] LABS: HCG Quantitative 21 mIU/mL
== END 2020-11-16 06:14 | disposition home or self-care (01) ==
LOC: HO.LAB 06:13
PROVIDERS: PCP Physician Assistant; Visit Provider Obstetrics & Gynecology
DX: O00.90 Unspecified ectopic pregnancy without intrauterine pregnancy (principal)
CPT/HCPCS: 36415; 84702

== ENCOUNTER → 2020-11-30 10:54 | Outpatient (BNVA) | payer OTHER, SELFPAY | PROVIDERS: PCP Physician Assistant; Visit Provider Obstetrics & Gynecology ==

== ENCOUNTER 2021-06-12 06:50 | Outpatient (REF) | payer OTHER, SELFPAY ==
[2021-06-12 07:17] LABS: Hematocrit 42.9 % (37.0-47.0); Hemoglobin 13.6 g/dl (12.0-16.0); Mean Corpuscular HGB Conc 31.7 g/dl (31.0-35.0); Mean Corpuscular Hemoglobin 28.5 pg (27.0-33.0); Mean Corpuscular Volume 89.7 fL (80.0-98.0); Mean Platelet Volume 11.7 fL (9.4-12.3); Platelet Count 232 X10*3/uL (160-400); Red Blood Count 4.78 X10*6/uL (4.20-5.50); White Blood Count 6.9 X10*3/uL (4.8-10.8)
[2021-06-12 07:44] LABS: Alanine Aminotransferase 17 U/L (0-31); Albumin Level 3.9 g/dL (3.5-5.0); Alkaline Phosphatase 72 U/L (39-117); Anion Gap 11 (12-20); Aspartate Amino Transferase 13 U/L (5-31); Bilirubin Total 0.8 mg/dL (0.0-1.0); Blood Urea Nitrogen 15 mg/dL (9-16); Calcium 9.4 mg/dL (8.4-10.2); Carbon Dioxide 24 mmol/L (22-29); Chloride 108 mmol/L (96-108); Cholesterol 268 mg/dL; Estimated Glomerular Filt Rate > 60; Glucose Fasting 91 mg/dL (60-99); HDL Cholesterol 58 mg/dL; LDL Cholesterol Calculated 163 mg/dl; Sodium 139 mmol/L (135-145); Total Protein 6.9 g/dL (6.5-8.0); Triglycerides 235 mg/dL
[2021-06-12 07:48] LABS: HCG Quantitative < 2 mIU/mL
[2021-06-12 08:09] LABS: TSH reflex Free T4 1.96 uIU/mL (0.32-4.0)
== END 2021-06-12 06:51 | disposition home or self-care (01) ==
LOC: HO.LAB 06:50
PROVIDERS: Obstetrics & Gynecology; PCP Physician Assistant; Visit Provider Physician Assistant
DX: O00.90 Unspecified ectopic pregnancy without intrauterine pregnancy (principal); I10 Essential (primary) hypertension; E78.2 Mixed hyperlipidemia
CPT/HCPCS: 36415; 80053; 80061; 84443; 84702; 85027

== ENCOUNTER 2021-07-11 13:30 | Outpatient (REF) | payer OTHER, SELFPAY ==
--- NOTE | ~2021-07-11 | MM_ITS ---
EXAMINATION: MM SCREENING DIGITAL BREAST TOMOSYNTHESIS, BILATERAL CLINICAL INFORMATION: Screening. Asymptomatic. The lifetime risk of breast cancer based on the Tyrer-Cuzick Model is 6.4%. COMPARISON: Mammography: May 24, 2020 TECHNIQUE: Digital breast tomosynthesis is performed in both the craniocaudal and mediolateral oblique views along with computer-aided detection (CAD). Synthesized 2D images are generated from the tomosynthesis. FINDINGS: There are scattered areas of fibroglandular density (ACR BI-RADS breast composition Category b). There are no significant masses, abnormal calcifications, or other abnormalities. MM/MM tomosynthesis screening BI IMPRESSION: There are no significant changes from prior study. ASSESSMENT: BI-RADS 1: Negative RECOMMENDATION: Routine annual mammography screening. This patient's information was entered into a reminder system with a target due date for their next mammogram.
== END 2021-07-11 13:31 | disposition home or self-care (01) ==
LOC: HO.MAMMO 13:30
PROVIDERS: Visit Provider Physician Assistant
DX: Z12.31 Encounter for screening mammogram for malignant neoplasm of breast (principal)
CPT/HCPCS: 77063; 77067

== ENCOUNTER 2021-12-05 09:08 | Outpatient (REF) | payer OTHER, SELFPAY ==
[2021-12-05 14:34] LABS: CT PCR NOT DETECTED (Not Detect.); NG PCR NOT DETECTED (Not Detect.)
[2021-12-10 09:47] LABS: HPV mRNA E6/E7 rflx Not Detected (Not Detected)
== END 2021-12-05 09:09 | disposition home or self-care (01) ==
LOC: HO.LAB 09:08
PROVIDERS: PCP Physician Assistant; Visit Provider Advanced Practice Midwife
DX: Z01.419 Encounter for gynecological examination (general) (routine) without abnormal findings (principal); R32 Unspecified urinary incontinence; Z20.2 Contact with and (suspected) exposure to infections with a predominantly sexual mode of transmission
CPT/HCPCS: 87491; 87591; 87624; 88142

== ENCOUNTER 2021-12-16 06:04 | Outpatient (REF) | payer OTHER, SELFPAY ==
[2021-12-16 07:32] LABS: Hematocrit 43.1 % (37.0-47.0); Mean Corpuscular HGB Conc 32.5 g/dl (31.0-35.0); Mean Corpuscular Hemoglobin 28.9 pg (27.0-33.0); Mean Corpuscular Volume 88.9 fL (80.0-98.0); Mean Platelet Volume 12.1 fL (9.4-12.3); Platelet Count 231 X10*3/uL (160-400); Red Blood Count 4.85 X10*6/uL (4.20-5.50); Red Cell Distribution Width 13.9 % (11.0-16.0); White Blood Count 7.4 X10*3/uL (4.8-10.8)
[2021-12-16 08:04] LABS: Alanine Aminotransferase 14 U/L (0-31); Albumin Level 4.2 g/dL (3.5-5.0); Alkaline Phosphatase 76 U/L (39-117); Anion Gap 13 (12-20); Aspartate Amino Transferase 13 U/L (5-31); Bilirubin Total 0.7 mg/dL (0.0-1.0); Blood Urea Nitrogen 11 mg/dL (9-16); Calcium 9.2 mg/dL (8.4-10.2); Carbon Dioxide 23 mmol/L (22-29); Chloride 106 mmol/L (96-108); Cholesterol 278 mg/dL; Estimated Glomerular Filt Rate > 60; Glucose Fasting 89 mg/dL (60-99); HDL Cholesterol 59 mg/dL; LDL Cholesterol Calculated 192 mg/dl; Potassium 4.5 mmol/L (3.3-5.1); Sodium 137 mmol/L (135-145); Total Protein 7.3 g/dL (6.5-8.0); Triglycerides 139 mg/dL
[2021-12-16 08:13] LABS: HBc Num1 0.07 S/CO (0.00-0.79); HIV AB/AG Nonreactive (Nonreactive); HIV Num 1 0.06 S/CO (0.00-0.99); Hepatitis B Core Antibody Nonreactive (Nonreactive); ~HepC Num1 0.08 S/CO (0.00-0.79); ~Hepatitis C Antibody Nonreactive (Nonreactive)
[2021-12-16 08:26] LABS: TSH reflex Free T4 1.98 uIU/mL (0.32-4.0)
[2021-12-16 08:33] LABS: Estimated Average Glucose 94 mg/dL; Hemoglobin A1c % 4.9 %
[2021-12-16 08:56] LABS: Syphilis Screen Nonreactive (Nonreactive)
== END 2021-12-16 06:05 | disposition home or self-care (01) ==
LOC: HO.LAB 06:04
PROVIDERS: Absent Provider Advanced Practice Midwife; PCP Physician Assistant; Visit Provider Physician Assistant
DX: Z11.4 Encounter for screening for human immunodeficiency virus [HIV] (principal); E78.2 Mixed hyperlipidemia; E66.01 Morbid (severe) obesity due to excess calories; Z68.42 Body mass index [BMI] 45.0-49.9, adult; Z20.2 Contact with and (suspected) exposure to infections with a predominantly sexual mode of transmission
CPT/HCPCS: 36415; 80053; 80061; 83036; 84443; 85027; 86704; 86780; 86803; 87389

== ENCOUNTER → 2022-01-01 09:33 | Outpatient (BNVA) | payer OTHER, SELFPAY | PROVIDERS: PCP Physician Assistant; Visit Provider Physician Assistant Surgical | DX: E66.01 Morbid (severe) obesity due to excess calories (principal); Z11.0 Encounter for screening for intestinal infectious diseases; Z68.42 Body mass index [BMI] 45.0-49.9, adult | CPT/HCPCS: 99202; 99211 ==

== ENCOUNTER 2022-01-01 15:57 | Outpatient (REF) | payer OTHER, SELFPAY ==
[2022-01-04 14:10] LABS: H Pylori Breath Test Negative (Negative)
== END 2022-01-01 15:58 | disposition home or self-care (01) ==
LOC: HO.LNP 15:57
PROVIDERS: Visit Provider Physician Assistant Surgical
DX: E66.01 Morbid (severe) obesity due to excess calories (principal)
CPT/HCPCS: 83013

== ENCOUNTER 2022-01-16 06:43 | Outpatient (REF) | payer OTHER, SELFPAY ==
--- NOTE | ~2022-01-16 | XR_ITS ---
EXAMINATION: XR CHEST CLINICAL INFORMATION: Bariatric service evaluation, E66.01. COMPARISON: None TECHNIQUE: 2 views of the chest were obtained. FINDINGS: Lungs clear. No hyperinflation, infiltrate, or effusion. Heart normal in size. Hilar and mediastinal contours are normal. Bony structures are unremarkable. XR/XR chest 2V IMPRESSION: Unremarkable examination.
[2022-01-16 07:00] LABS: MANUAL DIFF FLAG NO
--- NOTE | 2022-01-16 07:17 | ECG_ITS ---
Test Reason : e66.01 Blood Pressure : / mmHG Vent. Rate : 062 BPM Atrial Rate : 062 BPM P-R Int : 138 ms QRS Dur : 090 ms QT Int : 404 ms P-R-T Axes : 049 034 042 degrees QTc Int : 410 ms Normal sinus rhythm Normal ECG When compared with ECG of 27-MAY-2020 20:06, T wave inversion no longer evident in Anterior leads Referred By: Brennan Mcgee Electronically Signed By:CHRISTOPHER MONCADA MD
[2022-01-16 08:25] LABS: Basophils Percent Auto 0.3 % (0-2); Eosinophils Percent Auto 0.5 % (0-4); Hematocrit 41.8 % (37.0-47.0); Hemoglobin 13.4 g/dl (12.0-16.0); Imm Gran Abs Auto 0.02 X10*3/uL (0.00-0.03); Imm Gran Pct Auto 0.3 % (0.0-0.4); Lymphocytes Absolute Auto 2.3 X10*3/uL (1.2-4.9); Lymphocytes Percent Auto 38.4 % (20-40); Mean Corpuscular HGB Conc 32.1 g/dl (31.0-35.0); Mean Corpuscular Hemoglobin 28.2 pg (27.0-33.0); Mean Platelet Volume 11.9 fL (9.4-12.3); Monocytes Absolute Auto 0.4 X10*3/uL (0.1-1.2); Monocytes Percent Auto 5.8 % (2-11); Neutrophils Absolute Auto 3.3 x10*3/uL (2.0-8.3); Neutrophils Percent Auto 54.7 % (45-73); Platelet Count 218 X10*3/uL (160-400); Red Blood Count 4.75 X10*6/uL (4.20-5.50); Red Cell Distribution Width 14.3 % (11.0-16.0); White Blood Count 6.1 X10*3/uL (4.8-10.8)
[2022-01-16 08:29] LABS: Estimated Average Glucose 94 mg/dL; Hemoglobin A1c % 4.9 %
[2022-01-16 08:54] LABS: Alanine Aminotransferase 19 U/L (0-31); Albumin Level 3.9 g/dL (3.5-5.0); Alkaline Phosphatase 71 U/L (39-117); Anion Gap 11 (12-20); Aspartate Amino Transferase 15 U/L (5-31); Bilirubin Total 0.4 mg/dL (0.0-1.0); Blood Urea Nitrogen 10 mg/dL (9-16); Calcium 8.8 mg/dL (8.4-10.2); Carbon Dioxide 23 mmol/L (22-29); Chloride 106 mmol/L (96-108); Cholesterol 259 mg/dL; Estimated Glomerular Filt Rate > 60; Glucose Random 91 mg/dL (60-115); HDL Cholesterol 64 mg/dL; Iron 42 mcg/dL (30-160); LDL Cholesterol Calculated 170 mg/dl; Percent Iron Saturation 9 % (15-50); Potassium 4.3 mmol/L (3.3-5.1); Sodium 136 mmol/L (135-145); Total Iron Binding Capacity 443 mcg/dL (228-428); Total Protein 6.8 g/dL (6.5-8.0); Triglycerides 126 mg/dL; Unsaturated Iron Binding 401 ug/dL
[2022-01-16 09:05] LABS: Ferritin 11 ng/mL (10-250); TSH reflex Free T4 1.18 uIU/mL (0.32-4.0); Vitamin D 25-OH Total 8.5 ng/mL (>30)
[2022-01-16 09:21] LABS: Folate 7.4 ng/mL (> or = 4.0); Vitamin B12 197 pg/mL (200-900)
[2022-01-16 09:37] LABS: Insulin 15 uU/mL (2-29)
[2022-01-17 13:26] LABS: Calcium (PTHI) 9.1 mg/dL (8.6-10.2); PTHI 114 pg/mL (16-77)
[2022-01-18 14:27] LABS: DHEA Sulfate 79 mcg/dL (15-205); Follicle Stimulating Hormone 8.2 mIU/mL
[2022-01-21 05:52] LABS: Zinc 88 mcg/dL (60-130)
[2022-01-22 08:51] LABS: Vitamin B1 <6 nmol/L (8-30)
[2022-01-22 15:11] LABS: Testosterone, Free 3.3 pg/mL (0.1-6.4); Testosterone, Total 32 ng/dL (2-45)
[2022-01-22 17:27] LABS: Vitamin A 43 mcg/dL (38-98)
[2022-01-24 11:36] LABS: DHEA, Unconjugated 393 ng/dL
[2022-01-28 16:27] LABS: Estrogen 384.9 pg/mL
== END 2022-01-16 06:44 | disposition home or self-care (01) ==
LOC: HO.XRAY 06:43
PROVIDERS: Absent Provider Physician Assistant; PCP Physician Assistant; Visit Provider Physician Assistant Surgical
DX: E66.01 Morbid (severe) obesity due to excess calories (principal); Z68.42 Body mass index [BMI] 45.0-49.9, adult
CPT/HCPCS: 36415; 71046; 80053; 80061; 82306; 82607; 82626; 82627; 82672; 82728; 82746; 83001; 83036; 83525; 83540; 83970; 84402; 84403; 84425; 84443; 84590; 84630; 85025; 86140; 93005

== ENCOUNTER → 2022-01-23 10:35 | Outpatient (BNVA) | payer OTHER, SELFPAY | PROVIDERS: PCP Physician Assistant; Visit Provider Physician Assistant Surgical | DX: E66.01 Morbid (severe) obesity due to excess calories (principal); Z68.42 Body mass index [BMI] 45.0-49.9, adult | CPT/HCPCS: 99212 ==

== ENCOUNTER → 2022-02-06 10:01 | Outpatient (BNVA) | payer OTHER, SELFPAY | PROVIDERS: PCP Physician Assistant; Referring Provider Physician Assistant Surgical; Visit Provider Dietitian, Registered | DX: E66.01 Morbid (severe) obesity due to excess calories (principal); Z68.42 Body mass index [BMI] 45.0-49.9, adult; Z71.3 Dietary counseling and surveillance | CPT/HCPCS: 97802 ==

== ENCOUNTER → 2022-04-10 11:09 | Outpatient (BNVA) | payer OTHER, SELFPAY | PROVIDERS: PCP Physician Assistant; Visit Provider Surgery Vascular Surgery | DX: I83.11 Varicose veins of right lower extremity with inflammation (principal) | CPT/HCPCS: 99212 ==

== ENCOUNTER → 2022-08-01 09:40 | Outpatient (BNVA) | payer OTHER, SELFPAY | PROVIDERS: PCP Physician Assistant; Visit Provider Dietitian, Registered | DX: E66.01 Morbid (severe) obesity due to excess calories (principal); Z68.42 Body mass index [BMI] 45.0-49.9, adult; Z71.3 Dietary counseling and surveillance | CPT/HCPCS: 97802 ==

== ENCOUNTER 2022-08-07 11:51 | Outpatient (REF) | payer OTHER, SELFPAY ==
--- NOTE | ~2022-08-07 | US_ITS ---
EXAMINATION: US VENOUS BILATERAL LOWER EXTREMITIES (REFLUX EXAM) CLINICAL INDICATION: Right leg VenaSeal. COMPARISON: None TECHNIQUE: Color flow triplex imaging and compression Doppler was performed to evaluate both the deep and the superficial systems bilaterally. To evaluate the superficial system, the examination was performed in the upright position. Color-flow Doppler ultrasound and compression ultrasound were utilized. In addition, maneuvers were utilized to demonstrate reflux. FINDINGS: 1. DEEP VENOUS ULTRASOUND OF THE RIGHT LOWER EXTREMITY: Respiratory variation, normal compression and augmented flow are noted in the right common femoral vein as well as the right popliteal vein and there is no evidence of deep venous thrombosis at these locations. There is 1.1 second of reflux in the right popliteal vein but not the femoral vein. There is no evidence of a Watson's cyst. 2. SUPERFICIAL ULTRASOUND WITH DOPPLER OF RIGHT LOWER EXTREMITY: The right great saphenous vein at the saphenofemoral junction measures 8 mm, at the proximal thigh 3 mm, at the mid thigh 4 mm, above the knee 7 mm, at the knee 3 mm, [id number] 8 mm, midcalf 3 mm and at the ankle measures 2 mm. The saphenous vein in the mid thigh is occluded with VenaSeal. Reflux is noted below the knee with reflux times as great as 3.7 seconds. Duplicated Right Great Saphenous Vein: There is a lateral accessory saphenous that measures 8 mm and demonstrates greater than 3 seconds of reflux. The right small saphenous vein measures 3 mm and shows no reflux. Accessory Vein of Giacomini: None Incompetent Perforators: None Varices Present: None 3. DEEP VENOUS ULTRASOUND OF THE LEFT LOWER EXTREMITY: Respiratory variation, normal compression and augmented flow are noted in the left common femoral vein as well as the left popliteal vein and there is no evidence of deep venous thrombosis at these locations. There is no evidence of reflux in the deep system in either the common femoral vein or the popliteal vein. There is no evidence of a Watson's cyst. 4. SUPERFICIAL ULTRASOUND WITH DOPPLER OF LEFT LOWER EXTREMITY: Left great saphenous vein at the saphenofemoral junction measures 9 mm, at the proximal thigh 7 mm, at the mid thigh 3 mm, above the knee 3 mm, at the knee 3 mm, [id number]-[id number] 2 mm, midcalf 3 mm and at the ankle measures 2 mm. There is no reflux demonstrated in the left great saphenous vein. Duplicated Left Great Saphenous Vein: There is a lateral accessory saphenous measuring 4 mm that does not reflux. The left small saphenous vein measures 4 mm and shows no reflux. Accessory Vein of Giacomini: None Incompetent Perforators: None. Varices Present: None US/US venous duplex LE BI IMPRESSION: 1. No evidence of DVT. 2. There is deep venous reflux in the right popliteal. 3. The right great saphenous vein in the mid thigh is occluded with VenaSeal. There is a lateral accessory right great saphenous vein which demonstrates greater than 3 seconds of reflux.
--- NOTE | ~2022-08-07 | MM_ITS ---
EXAMINATION: MM SCREENING DIGITAL BREAST TOMOSYNTHESIS, BILATERAL CLINICAL INFORMATION: Screening. Asymptomatic. The lifetime risk of breast cancer based on the Tyrer-Cuzick Model is 6.4%. COMPARISON: Mammography: July 11, 2021 and May 24, 2020 TECHNIQUE: Digital breast tomosynthesis is performed in both the craniocaudal and mediolateral oblique views along with computer-aided detection (CAD). Synthesized 2D images are generated from the tomosynthesis. FINDINGS: There are scattered areas of fibroglandular density (ACR BI-RADS breast composition Category b). There are no significant masses, abnormal calcifications, or other abnormalities. MM/MM tomosynthesis screening BI IMPRESSION: No significant changes from prior exam. ASSESSMENT: BI-RADS 1: Negative RECOMMENDATION: Routine annual mammography screening. This patient's information was entered into a reminder system with a target due date for their next mammogram.
== END 2022-08-07 11:52 | disposition home or self-care (01) ==
LOC: HO.MAMMO 11:51
PROVIDERS: PCP Physician Assistant; Visit Provider Physician Assistant
DX: Z12.31 Encounter for screening mammogram for malignant neoplasm of breast (principal); I83.11 Varicose veins of right lower extremity with inflammation
CPT/HCPCS: 77063; 77067; 93970

== ENCOUNTER → 2022-09-30 10:13 | Outpatient (BNVA) | payer OTHER, SELFPAY | PROVIDERS: PCP Physician Assistant; Visit Provider Surgery Vascular Surgery | DX: I83.11 Varicose veins of right lower extremity with inflammation (principal) | CPT/HCPCS: 99212 ==

== ENCOUNTER → 2022-11-07 09:29 | Outpatient (BNVA) | payer OTHER, SELFPAY | PROVIDERS: PCP Physician Assistant; Visit Provider Surgery Vascular Surgery | DX: I83.11 Varicose veins of right lower extremity with inflammation (principal) | CPT/HCPCS: 37766 ==

== ENCOUNTER 2022-11-11 06:15 | Outpatient (REF) | payer OTHER, SELFPAY ==
[2022-11-11 07:36] LABS: Hematocrit 41.7 % (37.0-47.0); Hemoglobin 13.2 g/dl (12.0-16.0); Mean Corpuscular HGB Conc 31.7 g/dl (31.0-35.0); Mean Corpuscular Hemoglobin 28.7 pg (27.0-33.0); Mean Corpuscular Volume 90.7 fL (80.0-98.0); Mean Platelet Volume 11.9 fL (9.4-12.3); Platelet Count 238 X10*3/uL (160-400); Red Cell Distribution Width 14.6 % (11.0-16.0); White Blood Count 8.9 X10*3/uL (4.8-10.8)
[2022-11-11 12:30] LABS: Alanine Aminotransferase 10 U/L (0-31); Albumin Level 3.7 g/dL (3.5-5.0); Alkaline Phosphatase 78 U/L (39-117); Anion Gap 11 (12-20); Aspartate Amino Transferase 11 U/L (5-31); Bilirubin Total 0.7 mg/dL (0.0-1.0); Blood Urea Nitrogen 10 mg/dL (9-16); Calcium 9.3 mg/dL (8.4-10.2); Carbon Dioxide 26 mmol/L (22-29); Chloride 108 mmol/L (96-108); Cholesterol 244 mg/dL; Estimated Glomerular Filt Rate > 60; Glucose Fasting 90 mg/dL (60-99); HDL Cholesterol 55 mg/dL; LDL Cholesterol Calculated 166 mg/dl; Potassium 4.2 mmol/L (3.3-5.1); Sodium 141 mmol/L (135-145); TSH reflex Free T4 1.53 uIU/mL (0.32-4.0); Total Protein 6.6 g/dL (6.5-8.0); Triglycerides 115 mg/dL
== END 2022-11-11 06:16 | disposition home or self-care (01) ==
LOC: HO.LAB 06:15
PROVIDERS: PCP Physician Assistant; Visit Provider Physician Assistant
DX: E78.2 Mixed hyperlipidemia (principal)
CPT/HCPCS: 36415; 80053; 80061; 84443; 85027

== ENCOUNTER → 2022-11-20 08:55 | Outpatient (BNVA) | payer OTHER, SELFPAY | PROVIDERS: PCP Physician Assistant; Visit Provider Surgery Vascular Surgery | DX: I83.11 Varicose veins of right lower extremity with inflammation (principal); Z98.890 Other specified postprocedural states | CPT/HCPCS: 99212 ==

== ENCOUNTER → 2022-12-04 09:24 | Outpatient (BNVA) | payer OTHER, SELFPAY | PROVIDERS: PCP Physician Assistant; Visit Provider Dietitian, Registered | DX: E66.01 Morbid (severe) obesity due to excess calories (principal); Z68.42 Body mass index [BMI] 45.0-49.9, adult; Z71.3 Dietary counseling and surveillance | CPT/HCPCS: 97803 ==

== ENCOUNTER → 2022-12-09 10:24 | Outpatient (BNVA) | payer OTHER, SELFPAY | PROVIDERS: PCP Physician Assistant; Visit Provider Dietitian, Registered | DX: E66.01 Morbid (severe) obesity due to excess calories (principal); Z68.42 Body mass index [BMI] 45.0-49.9, adult; Z71.3 Dietary counseling and surveillance | CPT/HCPCS: 97803 ==

== ENCOUNTER 2022-12-11 11:18 | Outpatient (REF) | payer OTHER, SELFPAY ==
[2022-12-11 14:52] LABS: CT PCR NOT DETECTED (Not Detect.); NG PCR NOT DETECTED (Not Detect.)
[2022-12-12 11:12] LABS: BV Int Neg Control Negative (Negative); BV Int Pos Control Positive (Positive)
== END 2022-12-11 11:19 | disposition home or self-care (01) ==
LOC: HO.LAB 11:18
PROVIDERS: PCP Physician Assistant; Visit Provider Advanced Practice Midwife
DX: Z01.419 Encounter for gynecological examination (general) (routine) without abnormal findings (principal); R10.2 Pelvic and perineal pain
CPT/HCPCS: 0353U; 81003; 87480; 87510; 87660

== ENCOUNTER 2022-12-11 11:52 | Outpatient (REF) | payer OTHER, SELFPAY | END 2022-12-11 11:53 | disposition home or self-care (01) | LOC: HO.LNP 11:52 | PROVIDERS: Visit Provider Advanced Practice Midwife | DX: Z13.89 Encounter for screening for other disorder (principal) ==

== ENCOUNTER 2022-12-23 21:58 | Emergency (ER) | payer OTHER, SELFPAY ==
[2022-12-23 22:02] VITALS: BP 157/89; PULSE 91; RESP 18; TEMP 36.8; O2SAT 97; BMI 46.1
--- NOTE | 2022-12-23 22:08 | ECG_ITS ---
Test Reason : chesrt pain Blood Pressure : / mmHG Vent. Rate : 080 BPM Atrial Rate : 080 BPM P-R Int : 138 ms QRS Dur : 088 ms QT Int : 380 ms P-R-T Axes : 064 017 048 degrees QTc Int : 438 ms Normal sinus rhythm Normal ECG When compared with ECG of 16-JAN-2022 07:36, No significant change was found Referred By: Generic ED Physician Electronically Signed By:BIN STREET
--- NOTE | 2022-12-23 22:16 | MHC.EDTECH ---
PATIENT EKG TAKEN AND WAS READ BY PROVIDER .
[2022-12-23 22:38] LABS: MANUAL DIFF FLAG NO
[2022-12-23 22:39] LABS: Basophils Percent Auto 0.4 % (0-2); Eosinophils Percent Auto 0.4 % (0-4); Hematocrit 39.6 % (37.0-47.0); Hemoglobin 12.7 g/dl (12.0-16.0); Imm Gran Abs Auto 0.02 X10*3/uL (0.00-0.03); Imm Gran Pct Auto 0.3 % (0.0-0.4); Lymphocytes Absolute Auto 2.1 X10*3/uL (1.2-4.9); Lymphocytes Percent Auto 25.9 % (20-40); Mean Corpuscular HGB Conc 32.1 g/dl (31.0-35.0); Mean Corpuscular Hemoglobin 28.8 pg (27.0-33.0); Mean Corpuscular Volume 89.8 fL (80.0-98.0); Mean Platelet Volume 10.8 fL (9.4-12.3); Monocytes Absolute Auto 0.4 X10*3/uL (0.1-1.2); Monocytes Percent Auto 4.9 % (2-11); Neutrophils Absolute Auto 5.4 x10*3/uL (2.0-8.3); Neutrophils Percent Auto 68.1 % (45-73); Platelet Count 239 X10*3/uL (160-400); Red Blood Count 4.41 X10*6/uL (4.20-5.50); Red Cell Distribution Width 14.4 % (11.0-16.0); White Blood Count 7.9 X10*3/uL (4.8-10.8)
[2022-12-23 22:52] LABS: Anion Gap 13 (12-20); Blood Urea Nitrogen 11 mg/dL (9-16); Calcium 9.2 mg/dL (8.4-10.2); Carbon Dioxide 22 mmol/L (22-29); Chloride 109 mmol/L (96-108); Estimated Glomerular Filt Rate > 60; Glucose Random 107 mg/dL (60-115); Potassium 4.1 mmol/L (3.3-5.1); Sodium 140 mmol/L (135-145)
[2022-12-23 23:02] LABS: Troponin-I High Sensitivity < 2.7 ng/L (<3.5-17.0)
[2022-12-24 00:26] VITALS: BP 120/73; PULSE 67; RESP 17; TEMP 36.7; O2SAT 99
--- NOTE | 2022-12-24 01:34 | ED_ITS ---
HPI - Chest Pain General Chief Complaint: Chest Pain Stated Complaint: Chest pain/Headache Time Seen by Provider: 12/24/22 01:33 Source: patient Mode of arrival: ambulatory Limitations: no limitations History of Present Illness HPI narrative: Patient with history of anxiety not on any medication with frequent chest pain during anxiety attacks almost about every week comes here for chest pain started 2 days ago with headache unable to sleep no shortness of breath or palpitation Related Data Home Medications Medication Instructions Recorded Confirmed biotin 800 mcg tablet 500 mcg PO DAILY 12/26/21 11/12/22 Previous Rx's Medication Instructions Recorded cholecalciferol (vitamin D3) 125 125 mcg PO DAILY #90 caps 04/16/22 mcg (5,000 unit) capsule vitamin B complex (B 1 tab PO DAILY 90 days #90 tabs 04/16/22 Complex-Vitamin B12 tablet) ibuprofen 800 mg tablet 800 mg PO Q8H PRN pain 30 days #90 05/20/22 tabs simvastatin 20 mg tablet 20 mg PO DAILY 90 days #90 tabs 11/12/22 clonazepam 1 mg tablet (Klonopin) 1 mg PO BEDTIME PRN anxiety/sleep 12/24/22 #20 tabs Allergies Allergy/AdvReac Type Severity Reaction Status Date / Time No Known Allergies Allergy Verified 12/11/22 11:21 Review of Systems Review of Systems: Yes all other systems are reviewed and are negative [facility] Past Medical History Medical History Ectopic Increased BMI Surgical History Ankle fracture, right (~2011) H/O LEEP H/O prior ablation treatment (~04/2020) History of section Family History Family History Father Hypertension Mother Diabetes Maternal Grandmother Stomach cancer Maternal Grandfather No problems noted. Paternal Grandmother No problems noted. Paternal Grandfather Lung cancer Social History [facility] Alcohol intake: current Alcohol intake frequency: holidays/special occasions only Alcohol type: beer Patient Tobacco Use Status: Never used Tobacco e-Cigarette/Vaping Use: Never Used Second Hand Smoke Exposure: No Advance Directives: No Advance Directives Information Provided: Yes service: No Current occupational status: employed Current occupation: [employer] Current occupational exposures/hazards: No Sexual orientation: Straight/Heterosexual Gender identity: Female Cognitive needs: No Hearing needs: No Vision needs: No Physical Exam Vital Signs: Vital Signs: Last Vital Signs Temp 98.1 F 12/24/22 00:26 Pulse 92 12/24/22 02:23 Resp 18 12/24/22 02:23 BP 125/71 12/24/22 02:23 Pulse Ox 99 12/24/22 02:23 O2 Del Method Room Air 12/24/22 02:23 BMI result Body Mass Index 46.1 Appearance: Alert. Oriented X3. Anxious Eyes: PERRLA, No Nystagmus ENT: Pharynx normal. Oral Mucosa moist Neck: Normal inspection. Neck supple. CVS: Normal heart rate and rhythm. Pulses normal. Respiratory: No respiratory distress. Equal air entry bilateral, no wheezing/rales/rhonchi Abdomen: Soft and nontender. Bowel sounds are present, no mass palpable, no CVA tenderness Skin: Skin warm and dry. Normal skin color. Normal skin turgor. Extremities: No lower extremity edema. No calf tenderness Neuro: Oriented X 3. No motor deficit. No sensory deficit.No cerebellar signs , cranial nerves II-XII intact Medications Administered Discontinued Medications Generic Name Dose Route Start Last Admin Trade Name Freq PRN Reason Stop Dose Admin Clonazepam 1 mg 12/24/22 02:08 12/24/22 02:23 Clonazepam 1 Mg Tablet PO 12/24/22 02:09 1 mg ONCE ONE Administration Medical Decision Making Lab Data [facility] Lab Attestation statement: I reviewed the patient's lab results. 12/23/22 22:33 12/23/22 22:33 Labs: Lab Results 12/23/22 12/23/22 12/23/22 Range/Units 22:33 22:33 22:33 WBC 7.9 (4.8-10.8) X10*3/uL RBC 4.41 (4.20-5.50) X10*6/uL Hgb 12.7 (12.0-16.0) g/dl Hct 39.6 (37.0-47.0) % MCV 89.8 (80.0-98.0) fL MCH 28.8 (27.0-33.0) pg MCHC 32.1 (31.0-35.0) g/dl RDW 14.4 (11.0-16.0) % Plt Count 239 (160-400) X10*3/uL MPV 10.8 (9.4-12.3) fL Immature Gran % (Auto) 0.3 (0.0-0.4) % Neut % (Auto) 68.1 (45-73) % Lymph % (Auto) 25.9 (20-40) % Wagoner % (Auto) 4.9 (2-11) % Eos % (Auto) 0.4 (0-4) % Baso % (Auto) 0.4 (0-2) % Lymph # (Auto) 2.1 (1.2-4.9) X10*3/uL Wagoner # (Auto) 0.4 (0.1-1.2) X10*3/uL Eos # (Auto) 0.0 (0.0-0.4) X10*3/uL Baso # (Auto) 0.0 (0.0-0.2) X10*3/uL Abs Immat Gran (auto) 0.02 (0.00-0.03) X10*3/uL Absolute Neuts (auto) 5.4 (2.0-8.3) x10*3/uL Absolute Nucleated RBC 0.000 (0.0-0.012) X10*3/uL Nucleated RBC % (auto) 0.0 (0.0-0.2) /100WBC Sodium 140 (135-145) mmol/L Potassium 4.1 (3.3-5.1) mmol/L Chloride 109 H (96-108) mmol/L Carbon Dioxide 22 (22-29) mmol/L Anion Gap 13 (12-20) BUN 11 (9-16) mg/dL Creatinine 0.84 (0.5-1.4) mg/dL Estim Creat Clear Calc 106.0 Estimated GFR > 60 Random Glucose 107 (60-115) mg/dL Calcium 9.2 (8.4-10.2) mg/dL Troponin I High Sens < 2.7 (<3.5-17.0) ng/L Independent Interpretation I performed an independent interpretation of an: EKG Interpretation: normal axis heart rate 80 beats per minute no acute ST wave changes no acute ischemia Discharge Plan Discharge Clinical Impression: MICHAEL (generalized anxiety disorder), Chest pain Patient Disposition: Home, Self-Care Instructions: Chest Pain (ED), Anxiety (ED) Additional Instructions: Rest at home Take medication for anxiety as prescribed and follow-up with PCP for further evaluation Report to ER if worsening of the chest pain Prescriptions: New clonazepam [Klonopin] 1 mg tablet 1 mg PO BEDTIME PRN (Reason: anxiety/sleep) Qty: 20 0RF Rx Instructions: administer 30 minutes before bedtime No Action ibuprofen 800 mg tablet 800 mg PO Q8H PRN (Reason: pain) 30 Days Qty: 90 2RF vitamin B complex [B Complex-Vitamin B12] Tablet 1 tab PO DAILY 90 Days Qty: 90 2RF cholecalciferol (vitamin D3) 125 mcg (5,000 unit) capsule 125 mcg PO DAILY Qty: 90 2RF simvastatin 20 mg tablet 20 mg PO DAILY 90 Days Qty: 90 1RF biotin 800 mcg tablet 500 mcg PO DAILY Interventions: ED Discharge Assessment Last Done: 12/24/22 02:27 Discharge Date/Time: 12/24/22 02:27
[2022-12-24 02:23] VITALS: BP 125/71; PULSE 92; RESP 18; O2SAT 99
[2022-12-24] MEDS: clonazePAM 1 MG TABLET PO (02:23)
== END 2022-12-24 02:27 | disposition home or self-care (01) ==
PROVIDERS: Emergency Provider Internal Medicine; PCP Physician Assistant
DX: R07.9 Chest pain, unspecified (principal); F41.1 Generalized anxiety disorder; Z79.899 Other long term (current) drug therapy
CPT/HCPCS: 36415; 80048; 84484; 85025; 93005; 99283; 99284

== ENCOUNTER 2023-01-08 12:47 | Outpatient (REF) | payer OTHER, SELFPAY ==
--- NOTE | ~2023-01-08 | US_ITS ---
EXAMINATION: US PELVIS CLINICAL INFORMATION: Pelvic and perineal pain. LMP one month ago. COMPARISON: 03/03/2019 TECHNIQUE: Ultrasound of the pelvis is performed using both transabdominal and transvaginal transducers along with Doppler. Transvaginal imaging is performed due to inadequate visualization transabdominally. FINDINGS: Uterus: The uterus is retroverted and measures 13.2 x 4.1 x 5.8 cm. No visible fibroid. The double wall endometrial thickness is 5 mm. Adnexa: Both ovaries are visualized. There is no pelvic ascites or fluid collection. Right ovary measures 3.1 x 0.8 x 1.1 cm. Left ovary measures 2.5 x 1.5 x 2.7 cm. US/US pelvic and transvaginal IMPRESSION: Unremarkable pelvic ultrasound.
== END 2023-01-08 12:48 | disposition home or self-care (01) ==
LOC: HO.US 12:47
PROVIDERS: Visit Provider Advanced Practice Midwife
DX: R10.2 Pelvic and perineal pain (principal)
CPT/HCPCS: 76830; 76856

== ENCOUNTER 2023-01-23 10:28 | Outpatient (AMB) | payer OTHER, SELFPAY ==
--- NOTE | 2023-01-23 10:30 | MHC.OFFVIS ---
Intake Vital Signs 01/23/23 10:40 Height 5 ft 3 in Weight 257 lb 15.053 oz BMI 45.7 BP 118/74 Intake Visit Reasons: ultra sound follow up Intake Note: The patient agreed to use of a emergency medical dispatcher during this encounter. Scribed for PRATIK Neely by Effie Simon emergency medical dispatcher, on 01/23/2023 at 10:53 am EST. Can Technician Required: No Information Interpreted: non-clinical & clinical Accompanied by: Self / Same As Patient Allergies No Known Allergies Allergy (Verified 01/23/23 10:41) Is last menstrual period known: Yes Last menstrual period: 01/16/23 HPI HPI Comments History of Present Illness Details She is here to discuss US results regarding pelvic pain and to confirm her decision on control use. She was previously interested in the Xulane patch and was informed she was not a good candidate due to her current weight. She is still interested in BC. She opts for OCP's. She denies any contraindications to control such as: migraines with aura, history of DVT or pulmonary emboli, high blood pressure, liver disease, thrombolic disorders, Lupus, +TUTU, or smoking. Currently sexually active. LMP 01/16/23. PFSH Medical History History of ectopic HLD (hyperlipidemia) Surgical History Ankle fracture, right (~2011) H/O LEEP H/O prior ablation treatment (~04/2020) History of section Family History Father Hypertension Mother Diabetes Maternal Grandmother Stomach cancer Maternal Grandfather No problems noted. Paternal Grandmother No problems noted. Paternal Grandfather Lung cancer Social History Housing: Condominium Alcohol intake: current Alcohol intake frequency: holidays/special occasions only Alcohol type: beer Patient Tobacco Use Status: Never used Tobacco e-Cigarette/Vaping Use: Never Used Second Hand Smoke Exposure: No service: No Current occupational status: employed Current occupation: [employer] Current occupational exposures/hazards: No Sexual orientation: Straight/Heterosexual Gender identity: Female Cognitive needs: No Hearing needs: No Vision needs: No Female Reproductive History Menstrual Date of last menstrual period: 01/16/23 Physical Exam Vital Signs: Last Vital Signs BP 118/74 01/23/23 10:40 BMI result Body Mass Index 45.7 Results Reviewed Results Reviewed: EXAMINATION:? US PELVIS CLINICAL INFORMATION:? Pelvic and perineal pain. LMP one month ago. COMPARISON: 03/03/2019 TECHNIQUE: Ultrasound of the pelvis is performed using both transabdominal and transvaginal transducers along with Doppler. Transvaginal imaging is performed due to inadequate visualization transabdominally. FINDINGS: Uterus: The uterus is retroverted and measures 13.2 x 4.1 x 5.8 cm.? No visible fibroid. The double wall endometrial thickness is 5 mm.? Adnexa: Both ovaries are visualized.? There is no pelvic ascites or fluid collection. Right ovary measures 3.1 x 0.8 x 1.1 cm. Left ovary measures 2.5 x 1.5 x 2.7 cm. US/US pelvic and transvaginal IMPRESSION: Unremarkable pelvic ultrasound. Assessment & Plan Assessment & Plan (1) Encounter to discuss test results: Code(s): Z71.2 - Person consulting for explanation of examination or test findings Plan: Discussed: US results of: Unremarkable pelvic ultrasound. Different options of control options. She opts for OCP. Control Counseling Use and side effects of control: Instructed to start the pill within the first 5 days of the menstrual period. Recommended to take pill at same time every day and with food to prevent stomach upset. Switch to bedtime intake with food if still experiencing nausea. Consider setting the cell phone for alerts as a reminder to take the pill at the same time. Use a back up method (condoms or abstinence if needed) if any late or missed doses until the end of the pill pack. Take the dose as soon as possible, and take your regular pill on time. If you miss the pill often, then consider another option of control. Always use condoms for STD prevention if indicated. Instructed patient to take for at least 3 months the body is acclimated to it. Most side effects go away with time in the first three months. Warnings: go to ER if and loss of vision/blindness, severe headache, chest pain or difficulty breathing, severe abdominal pain, or any pain or swelling in an extremity. Return in 3 months for pill check, or sooner if any concerns. Rx for Apri sent to pharmacy. All of her questions and concerns were addressed to the best of my ability and shared decision making. She is agreeable to plan of care. (2) control counseling: Code(s): Z30.09 - Encounter for other general counseling and advice on contraception Coding Level of Care Code Est Pt Level 3 (51890) Diagnoses Encounter to discuss test results Z71.2 control counseling Z30.09
[2023-01-23 10:40] VITALS: BP 118/74; BMI 45.7
== END 2023-01-23 11:04 | disposition home or self-care (01) ==
LOC: HO.HWS 10:28
PROVIDERS: PCP Physician Assistant; Visit Provider Advanced Practice Midwife
DX: Z71.2 Person consulting for explanation of examination or test findings (principal); Z30.09 Encounter for other general counseling and advice on contraception
CPT/HCPCS: 99213

== ENCOUNTER → 2023-01-23 10:28 | Outpatient (BNVA) | payer OTHER, SELFPAY | PROVIDERS: PCP Physician Assistant; Visit Provider Advanced Practice Midwife | DX: Z71.2 Person consulting for explanation of examination or test findings (principal); R10.2 Pelvic and perineal pain | CPT/HCPCS: 99212 ==

== ENCOUNTER 2023-08-11 09:52 | Outpatient (REF) | payer OTHER, SELFPAY | END 2023-08-11 09:53 | disposition home or self-care (01) | LOC: HO.MAMMO 09:52 | PROVIDERS: PCP Physician Assistant; Visit Provider Physician Assistant | DX: Z12.31 Encounter for screening mammogram for malignant neoplasm of breast (principal) | CPT/HCPCS: 77063; 77067 ==

== ENCOUNTER → 2023-08-11 10:00 | Outpatient (BNV) | payer OTHER, SELFPAY | PROVIDERS: PCP Physician Assistant; Visit Provider Radiology Diagnostic Radiology | DX: Z12.31 Encounter for screening mammogram for malignant neoplasm of breast (principal) | CPT/HCPCS: 77063; 77067 ==

== ENCOUNTER 2023-08-17 07:56 | Outpatient (REF) | payer OTHER, SELFPAY ==
[2023-08-17 09:47] LABS: Alanine Aminotransferase 10 U/L (0-31); Albumin Level 3.7 g/dL (3.5-5.0); Alkaline Phosphatase 71 U/L (39-117); Anion Gap 11 (12-20); Aspartate Amino Transferase 11 U/L (5-31); Bilirubin Total 0.5 mg/dL (0.0-1.0); Blood Urea Nitrogen 15 mg/dL (9-16); Calcium 9.1 mg/dL (8.4-10.2); Carbon Dioxide 25 mmol/L (22-29); Chloride 107 mmol/L (96-108); Cholesterol 247 mg/dL (<200); Estimated Glomerular Filt Rate > 60; Glucose Fasting 91 mg/dL (60-99); HDL Cholesterol 62 mg/dL (>40); LDL Cholesterol Calculated 162 mg/dL (<100); Sodium 139 mmol/L (135-145); Total Protein 6.7 g/dL (6.5-8.0); Triglycerides 119 mg/dL (<150)
[2023-08-17 10:05] LABS: TSH reflex Free T4 1.18 uIU/mL (0.32-4.0)
== END 2023-08-17 07:57 | disposition home or self-care (01) ==
LOC: HO.LAB 07:56
PROVIDERS: PCP Physician Assistant; Visit Provider Physician Assistant
DX: E78.2 Mixed hyperlipidemia (principal)
CPT/HCPCS: 36415; 80053; 80061; 84443

== ENCOUNTER 2023-08-19 13:33 | Outpatient (AMB) | payer OTHER, SELFPAY ==
[2023-08-19 13:42] VITALS: BP 132/70; PULSE 90; O2SAT 98; BMI 47.5
--- NOTE | 2023-08-19 13:42 | MHC.PC.OV ---
Vital Signs 08/19/23 13:42 Height 5 ft 3 in Weight 268 lb BMI 47.5 BP 132/70 Blood Pressure Location Lt brachial Position Sitting Pulse 90 Pulse Source Pulse Oximeter Pulse Oximetry (%) 98 Oxygen Delivery Method Room Air Intake Visit Reasons: Annual Exam Intake Note: Patient is here today for a physical. 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 Accompanied by: Self / Same As Patient Allergies No Known Allergies Allergy (Verified 08/19/23 13:50) Medication List - Last Reconciled 08/19/23 by Ang Whittaker PA-C biotin 500 mcg PO DAILY cholecalciferol (vitamin D3) 125 mcg PO DAILY clonazepam (Klonopin) 1 mg PO BEDTIME PRN ibuprofen 800 mg PO Q8H PRN 30 days simvastatin 20 mg PO DAILY 90 days vitamin B complex (B Complex-Vitamin B12 tablet) 1 tab PO DAILY 90 days Tobacco use date assessed: 08/19/23 Dental Screening Dental Screen Date: 08/19/23 Did you have a dental visit in the last 12 months?: Yes Did you have a dental problem in the last 6 months where you did not have access to dental care?: No Was dental information given to patient?: Patient has dentist HPI Annual Exam HPI Details Patient is a 43 year-old female here today for follow-up visit. ?Patient has a past medical history significant for varicose veins of lower extremities, hyperlipidemia. .. Hyperlipidemia: Lipid panel showing elevated total cholesterol. She has not been compliant with the use cholesterol medication. .. Obesity:? Has gained weight since last office visit . She was unable to stick with a weight management program. 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 Laboratory Tests 11/11/22 11/11/22 08/17/23 06:21 06:21 08:10 Creatinine 0.90 Cholesterol 244 247 H LDL Cholesterol, C alc 166 TSH 08/17/23 08/17/23 08:10 08:10 Creatinine Cholesterol LDL Cholesterol, C alc 162 H TSH 1.18 PFSH Medical History History of ectopic HLD (hyperlipidemia) Surgical History H/O LEEP History of section H/O prior ablation treatment (~04/2020) Ankle fracture, right (~2011) Family History Father Hypertension Mother Diabetes Maternal Grandmother Stomach cancer Maternal Grandfather No problems noted. Paternal Grandmother No problems noted. Paternal Grandfather Lung cancer Social History Housing: Condominium Alcohol intake: current Alcohol intake frequency: holidays/special occasions only Alcohol type: beer Patient Tobacco Use Status: Never used Tobacco e-Cigarette/Vaping Use: Never Used Second Hand Smoke Exposure: No service: No Current occupational status: employed Current occupation: [employer] Current occupational exposures/hazards: No Sexual orientation: Straight/Heterosexual Gender identity: Female Cognitive needs: No Hearing needs: No Vision needs: No Questionnaire PHQ-9 Over the last 2 weeks, how often have you been bothered by any of the following problems? 1. Little interest or pleasure in doing things: not at all 2. Feeling down, depressed, or hopeless: not at all 3. Trouble falling or staying asleep, or sleeping too much: not at all 4. Feeling tired or having little energy: not at all 5. Poor appetite or overeating: not at all 6. Feeling bad about yourself - or that you are a failure or have let yourself or your family down: not at all 7. Trouble concentrating on things, such as reading the newspaper or watching television: not at all 8. Moving or speaking so slowly that other people could have noticed. Or the opposite - being so fidgety or restless that you have been moving around a lot more than usual: not at all 9. Thoughts that you would be better off or of hurting yourself in some way: not at all Total score: 0 Depression Screening Interpretation: Negative Depression Screening Done: Yes [id number] - PHQ-9 Billing: Yes Source: Developed by Drs. Dave Salguero, Melanie Banuelos, Donta Adams and colleagues, with an educational raf from [employer]. Thrive Questionnaire Date Thrive assessed: 08/19/23 I am a: Patient What is your living situation today?: I have a steady place to live Within the past 12 months, did the food you bought not last and you didn't have the money to get more?: Never true Within the past 12 months, did you worry whether your food would run out before you got money to buy more?: Never true Do you have trouble paying for medicines?: No Do you have trouble getting transportation to medical appointments?: No Do you have trouble paying your heating and electricity bill?: No Do you have trouble taking care of your child, family member or friend?: No Do you have trouble with day-to-day activities such as bathing, preparing meals, shopping, managing finances, etc.?: No Are you currently unemployed and looking for a job?: No Are you interested in more education?: No Please select the resources that you would like help with: None Currently or been in a relationship where the following occur: no concerns reported THRIVE Score: 0 AUDIT C Alcohol Use Questionnaire (AUDIT-C) 1. How often do you have a drink containing alcohol?: Monthly or less 2. How many drinks containing alcohol do you have on a typical day when you are drinking?: 1 or 2 3. How often do you have six or more drinks on one occasion?: Never Total Score: 1 MICHAEL-7 AMB Questionnaire MICHAEL-7 Date MICHAEL - 7 assessed: 08/19/23 Feeling nervous, anxious, or on edge: 0 = Not at all Not being able to stop or control worryin = Not at all Worrying too much about different things: 0 = Not at all Trouble relaxin = Not at all Being so restless that it is hard to sit still: 0 = Not at all Becoming easily annoyed or irritable: 0 = Not at all Feeling afraid as if something awful might happen: 0 = Not at all Total MICHAEL-7 score (0-4 normal; 5-9 mild; 10-14 moderate; 15-21 severe): 0 Source: Developed by Drs. Dave Salguero, Melanie Banuelos, Donta Adams and colleagues, with an educational raf from [employer]. MICHAEL-7 Assessment Billing MICHAEL-7 Assessment Tool: MICHAEL-7 Assessment [id number] Review of Systems Const Denies body aches, Denies chills, Denies excessive sweating, Denies fatigue, Denies fever(s) and Denies headache(s) Eyes Denies blurry vision ENT Denies dysphagia, Denies vertigo, Denies dizziness, Denies headache(s), Denies hearing loss and Denies tinnitus Card Denies chest pain, Denies chest pain with activity, Denies syncope, Denies irregular heart rhythm and Denies dyspnea Resp Denies chest congestion, Denies cough, Denies hemoptysis, Denies dyspnea and Denies wheezing GI Denies abdominal pain, Denies melena, Denies hematochezia, Denies coffee ground emesis, Denies dysphagia, Denies diarrhea, Denies nausea and Denies vomiting Denies urinary frequency, Denies dysuria, Denies urinary hesitancy and Denies urinary urgency Musc Denies arthralgias, Denies limited range of motion, Denies muscle cramps and Denies muscle weakness Skin/Breast Denies rash and Denies skin ulcer Neuro Denies Abnormal speech present, Denies confusion, Denies vertigo, Denies dizziness, Denies syncope, Denies headache(s), Denies memory loss and Denies seizure-like activity Psych Denies anxiety, Denies confusion, Denies depression, Denies memory loss, Denies panic attacks and Denies paranoia Endo Denies excessive sweating, Denies fatigue, Denies flushing, Denies polydipsia and Denies polyuria Aller/Immun Denies wheezing Physical exam (Primary Care) BMI result Body Mass Index 47.5 Tobacco/Smoking Status: Tobacco use Status Tobacco use date assessed 11/12/22 11/12/22 09:05 Patient Tobacco Use Status Never used Tobacco 12/11/22 11:28 e-Cigarette/Vaping Use Never Used 12/11/22 11:28 Depression Screening Interpretation: Negative Thrive Assessment: Date of Thrive Assessment Date Thrive assessed 11/12/22 11/12/22 09:06 Currently or been in a relationship where the following occur: no concerns reported Const General: cooperative, comfortable, no acute distress, alert and awake; No confusion Orientation/consciousness: oriented to person, oriented to place, patient oriented x3 and No confusion HENMT Head: Yes normocephalic Ears: external ears normal and TM's normal bilaterally Face and sinus: No sinus tenderness Mouth: Normal oral and palatal mucosa present and tongue normal Teeth and gingiva: dentition normal and gingiva normal Throat: Yes posterior oropharynx normal, Yes tonsils normal and Yes uvula midline Eyes Conjunctivae: conjunctivae normal Sclerae: sclerae normal Pupils: Equal, round and reactive pupils present EOM: EOMs intact bilaterally Direct Ophthalmoscopy: No no photophobia Neck Neck: Yes no lymphadenopathy, No tender and Yes no JVD Thyroid: Thyroid normal Carotids: no bruits Chest Chest palpation & inspection: no tenderness Resp Effort & Inspection: normal respiratory effort, no audible wheezes, not labored and no stridor Auscultation: no crackles, no rales, no rhonchi and no wheezes Cardio Jugular venous distension: no JVD Rate: regular rate, not bradycardic and not tachycardic Rhythm: regular rhythm Bruits: no carotid bruits Peripheral pulses: Peripheral pulses 2+ throughout GI Inspection: Yes normal to inspection, No abdominal wall ecchymosis and No visible herniation Palpation (GI): Soft to palpation, nontender, no guarding, not rigid and No hepatosplenomegaly present Auscultation: normoactive bowel sounds General: Yes no CVA tenderness Back/Spine/Pelvis Back: no CVA tenderness and No back tenderness Cervical Spine: cervical ROM normal Thoracic/Lumbar Spine: thoracic and lumbar spine normal to inspection, straight leg raise negative bilaterally, No thoraco-lumbar ROM limited and No lumbar spinal tenderness Skin Lesions: no lesions Rashes: no rashes Wounds: no wounds Neuro General: oriented to person, oriented to place, patient oriented x3, CN's II-XI intact bilaterally and No confusion Cranial nerves: Yes Equal, round and reactive pupils present and Yes Normal accommodation reflex present Cognition (Neuro): normal cognition Speech: No Abnormal speech present Gait exam (Neuro): Normal gait present Motor exam (neuro): 5/5 motor strength present throughout Extrem Right upper extremity: full ROM; no cyanosis Left upper extremity: full ROM; no cyanosis Right lower extremity: no edema Left lower extremity: no edema Psych Appearance: grossly normal Mental Status: mental status grossly normal Affect: normal affect Attitude: cooperative Thought process: Normal thought process present Assessment and Plan Assessment & Plan (1) Annual physical exam: Code(s): Z00.00 - Encounter for general adult medical examination without abnormal findings (2) HLD (hyperlipidemia): Code(s): E78.5 - Hyperlipidemia, unspecified Qualifiers: Hyperlipidemia type: mixed hyperlipidemia Qualified Code(s): E78.2 - Mixed hyperlipidemia Plan: Patient's lipid panel has improved does still has elevated total cholesterol. Admits to not taking cholesterol medication consistently. She will like to work on lifestyle modifications and starting to take her medication more consistently. Goal LDL is to be below 160 Considering seeing a end user consultant again. (3) Obese: Code(s): E66.9 - Obesity, unspecified Qualifiers: Obesity type: due to excess calories Obesity classification: adult class 3 (BMI >= 40) Serious obesity comorbidity presence: without serious comorbidity Body mass index: BMI 45.0-49.9 Qualified Code(s): E66.01 - Morbid (severe) obesity due to excess calories; Z68.42 - Body mass index [BMI] 45.0-49.9, adult Plan: Patient's BMI still remains above 40, has gained some weight since last office visit due to being more physically active and adapting to some better eating habits. Will continue on working on lifestyle to reduce her weight. (4) MICHAEL (generalized anxiety disorder): Code(s): F41.1 - Generalized anxiety disorder Plan: Patient's MICHAEL-7 score positive for mild anxiety which has been an existing condition for her. She is not interested in mental health therapy or starting medications at this time. She is able to manage her anxiety. She does use clonazepam on a very limited as needed basis Medications: Changed From clonazepam (Klonopin) administer 30 minutes before bedtime 1 mg PO BEDTIME PRN 20 tabs 0RF anxiety/sleep F41.1 - Generalized anxiety disorder To clonazepam (Klonopin) administer 30 minutes before bedtime 1 mg PO BEDTIME 14 days PRN 14 tabs 0RF anxiety/sleep F41.1 - Generalized anxiety disorder Refilled cholecalciferol (vitamin D3) 125 mcg PO DAILY 90 caps 2RF E66.01 - Morbid (severe) obesity due to excess calories, Z68.42 - Body mass index [BMI] 45.0-49.9, adult simvastatin 20 mg PO DAILY 90 days 90 tabs 1RF E78.2 - Mixed hyperlipidemia vitamin B complex (B Complex-Vitamin B12 tablet) 1 tab PO DAILY 90 days 90 tabs 2RF E78.2 - Mixed hyperlipidemia Coding Level of Care Code Est Pt Prev Care 40-64y(98320) Diagnoses Annual physical exam Z00.00 Mixed hyperlipidemia E78.2 Hyperlipidemia type: mixed hyperlipidemia Class 3 severe obesity due to excess calories without serious comorbidity with body mass index (BMI) of 45.0 to 49.9 in adult E66.01; Z68.42 Obesity type: due to excess calories Obesity classification: adult class 3 (BMI >= 40) Serious obesity comorbidity presence: without serious comorbidity Body mass index: BMI 45.0-49.9 MICHAEL (generalized anxiety disorder) F41.1 Additional Codes MICHAEL-7 Assessment Billing - MICHAEL-7 Assessment Tool: MICHAEL-7 Assessment [id number] ([id number])
== END 2023-08-19 14:08 | disposition home or self-care (01) ==
PROVIDERS: PCP Physician Assistant; Visit Provider Physician Assistant
DX: Z00.00 Encounter for general adult medical examination without abnormal findings (principal); E66.01 Morbid (severe) obesity due to excess calories; Z68.42 Body mass index [BMI] 45.0-49.9, adult; E78.2 Mixed hyperlipidemia; F41.1 Generalized anxiety disorder
CPT/HCPCS: 99396

== ENCOUNTER 2024-02-22 06:32 | Outpatient (REF) | payer OTHER, SELFPAY ==
[2024-02-22 06:44] LABS: MANUAL DIFF FLAG NO
[2024-02-22 07:13] LABS: Basophils Percent Auto 0.5 % (0-2); Eosinophils Absolute Auto 0.1 X10*3/uL (0.0-0.4); Hemoglobin 13.5 g/dl (12.0-16.0); Imm Gran Abs Auto 0.03 X10*3/uL (0.00-0.03); Imm Gran Pct Auto 0.4 % (0.0-0.4); Lymphocytes Absolute Auto 2.4 X10*3/uL (1.2-4.9); Lymphocytes Percent Auto 32.9 % (20-40); Mean Corpuscular HGB Conc 32.9 g/dl (31.0-35.0); Mean Corpuscular Hemoglobin 29.2 pg (27.0-33.0); Mean Corpuscular Volume 88.6 fL (80.0-98.0); Mean Platelet Volume 11.8 fL (9.4-12.3); Monocytes Absolute Auto 0.5 X10*3/uL (0.1-1.2); Monocytes Percent Auto 6.3 % (2-11); Neutrophils Absolute Auto 4.3 x10*3/uL (2.0-8.3); Neutrophils Percent Auto 58.9 % (45-73); Platelet Count 231 X10*3/uL (160-400); Red Blood Count 4.63 X10*6/uL (4.20-5.50); White Blood Count 7.3 X10*3/uL (4.8-10.8)
[2024-02-22 07:47] LABS: Cholesterol 245 mg/dL (<200); HDL Cholesterol 60 mg/dL (>40); LDL Cholesterol Calculated 166 mg/dL (<100); Triglycerides 98 mg/dL (<150)
[2024-02-22 08:05] LABS: Free T4 (Free Thyroxine) 0.87 ng/dL (0.71-1.85); TSH reflex Free T4 1.55 uIU/mL (0.32-4.0)
[2024-02-22 08:17] LABS: Folate 7.8 ng/mL (> or = 4.0); Vitamin B12 269 pg/mL (200-900)
[2024-02-27 12:53] LABS: Vitamin D 25-OH, D2 <4 ng/mL; Vitamin D 25-OH, D3 19 ng/mL; Vitamin D 25-OH, Total 19 ng/mL (30-100)
== END 2024-02-22 06:33 | disposition home or self-care (01) ==
LOC: HO.LAB 06:32
PROVIDERS: PCP Physician Assistant
DX: Z00.00 Encounter for general adult medical examination without abnormal findings (principal)
CPT/HCPCS: 36415; 80061; 82306; 82607; 82746; 84439; 84443; 85025

== ENCOUNTER 2024-02-23 09:48 | Outpatient (AMB) | payer OTHER, SELFPAY ==
--- NOTE | 2024-02-23 09:50 | MHC.PC.OV ---
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 Accompanied by: Self / Same As Patient Allergies No Known Allergies Allergy (Verified 02/23/24 09:56) Medication List - Last Reconciled 02/23/24 by Ang Whittaker PA-C biotin 500 mcg PO DAILY cholecalciferol (vitamin D3) 125 mcg PO DAILY clonazepam (Klonopin) 1 mg PO BEDTIME PRN 14 days ibuprofen 800 mg PO Q8H PRN 30 days simvastatin 20 mg PO DAILY 90 days vitamin B complex (B Complex-Vitamin B12 tablet) 1 tab PO DAILY 90 days Tobacco use date assessed: 08/19/23 Dental Screening Dental Screen Date: 08/19/23 HPI 6mth f/u HPI Details Patient is a 44 year-old female here today for follow-up visit. ?Patient has a past medical history significant for varicose veins of lower extremities, hyperlipidemia. .. Hyperlipidemia: Lipid panel showing elevated total cholesterol. Has unfortunately gained weight since last office visit She has not been completely compliant with the use cholesterol medication. .. Obesity:? Has gained weight since last office visit . Unfortunately has not been able to lose much weight. She does report walking as her physical activity though has not done any formal physical activity. She is interested in starting Wegovy for weight loss. She was unable to stick with a weight management program. Laboratory Tests 08/17/23 02/22/24 08:10 06:43 RBC 4.63 Cholesterol 247 H 245 H LDL Cholesterol, C alc 162 H 166 H TSH 1.55 PFSH Medical History History of ectopic HLD (hyperlipidemia) Surgical History H/O LEEP History of section H/O prior ablation treatment (~04/2020) Ankle fracture, right (~2011) Family History Father Hypertension Mother Diabetes Maternal Grandmother Stomach cancer Maternal Grandfather No problems noted. Paternal Grandmother No problems noted. Paternal Grandfather Lung cancer Social History Housing: Condominium Alcohol intake: current Alcohol intake frequency: holidays/special occasions only Alcohol type: beer Patient Tobacco Use Status: Never used Tobacco e-Cigarette/Vaping Use: Never Used Second Hand Smoke Exposure: No service: No Current occupational status: employed Current occupation: [employer] Current occupational exposures/hazards: No Sexual orientation: Straight/Heterosexual Gender identity: Female Cognitive needs: No Hearing needs: No Vision needs: No Questionnaire Thrive Questionnaire Date Thrive assessed: 08/19/23 MICHAEL-7 AMB Questionnaire MICHAEL-7 Date MICHAEL - 7 assessed: 08/19/23 Source: Developed by Drs. Dave Salguero, Melanie Banuelos, Donta Adams and colleagues, with an educational raf from [employer]. Review of Systems Const Denies headache(s) Eyes Denies loss of vision ENT Denies vertigo, Denies dizziness, Denies headache(s) and Denies sore throat Card Denies chest pain, Denies leg edema and Denies lightheadedness Resp Denies cough, Denies hemoptysis and Denies wheezing GI Denies abdominal pain, Denies melena, Denies constipation, Denies diarrhea and Denies vomiting Denies urinary frequency, Denies dysuria and Denies urinary urgency Musc Denies arthralgias, Denies joint swelling, Denies numbness and Denies tingling Neuro Denies Abnormal speech present, Denies behavioral changes, Denies vertigo, Denies dizziness, Denies headache(s), Denies loss of vision, Denies memory loss, Denies numbness and Denies tingling Psych Denies anxiety, Denies behavioral changes, Denies depression, Denies memory loss and Denies panic attacks Joshua/Lymph Denies easy bleeding and Denies easy bruising Aller/Immun Denies wheezing Physical exam (Primary Care) Vital Signs: Last Vital Signs Pulse 95 02/23/24 09:53 BP 124/82 02/23/24 09:53 Pulse Ox 97 02/23/24 09:53 Oxygen Delivery Method Room Air 02/23/24 09:53 BMI result Body Mass Index 49.5 BMI Assessment/Plan discussion: High BMI High, discussed plan: lifestyle, weight reduction, dietary and physical activity Tobacco/Smoking Status: Tobacco use Status Tobacco use date assessed 08/19/23 02/23/24 09:50 Patient Tobacco Use Status Never used Tobacco 02/23/24 09:50 e-Cigarette/Vaping Use Never Used 02/23/24 09:50 Thrive Assessment: Date of Thrive Assessment Date Thrive assessed 08/19/23 02/23/24 09:50 Const General: healthy appearing, no acute distress, alert and awake Nutritional Appearance: well nourished Orientation/consciousness: oriented to person, oriented to place and oriented to time HENMT Ears: TM's normal bilaterally General nose exam: Normal nasal mucous membranes and turbinates present Eyes Conjunctivae: conjunctivae normal Sclerae: sclerae normal Pupils: Equal, round and reactive pupils present Neck Neck: Yes no lymphadenopathy and Yes no JVD Thyroid: Thyroid normal Carotids: no bruits Resp Effort & Inspection: normal respiratory effort and not tachypneic Auscultation: no crackles, no rales, no rhonchi and no wheezes Cardio Rate: regular rate Rhythm: regular rhythm Heart sounds: no murmurs and normal S1 and S2 GI Palpation (GI): Soft to palpation, nontender, no hepatomegaly and no splenomegaly Auscultation: normal bowel sounds Skin General skin exam: no rashes or lesions noted and dry skin Neuro General: oriented to person, oriented to place and oriented to time Cranial nerves: Yes Equal, round and reactive pupils present Speech: No Abnormal speech present Gait exam (Neuro): Normal gait present Motor exam (neuro): no tremor noted Extrem Right upper extremity: full ROM Left upper extremity: full ROM Right lower extremity: full ROM; no edema Left lower extremity: full ROM; no edema Psych Mental Status: mental status grossly normal Speech and movement: Normal speech and movement present Affect: normal affect Attitude: cooperative Thought process: Normal thought process present Assessment and Plan Assessment & Plan (1) HLD (hyperlipidemia): Code(s): E78.5 - Hyperlipidemia, unspecified Qualifiers: Hyperlipidemia type: mixed hyperlipidemia Qualified Code(s): E78.2 - Mixed hyperlipidemia Plan: Patient's lipid panel has improved does still has elevated total cholesterol. Admits to not taking cholesterol medication consistently. She will like to work on lifestyle modifications and starting to take her medication more consistently. Goal LDL is to be below 160 /again Considering seeing a general operations agent again. (2) Obese: Code(s): E66.9 - Obesity, unspecified Qualifiers: Obesity type: due to excess calories Obesity classification: adult class 3 (BMI >= 40) Serious obesity comorbidity presence: without serious comorbidity Body mass index: BMI 45.0-49.9 Qualified Code(s): E66.01 - Morbid (severe) obesity due to excess calories; Z68.42 - Body mass index [BMI] 45.0-49.9, adult Plan: Patient's BMI still remains above 40, has gained some weight since last office visit due to being more physically active and adapting to some better eating habits. Will continue on working on lifestyle to reduce her weight. She is now interested in starting a GLP 1 to help her with weight loss. Orders: Orders Comprehensive [place]. Panel Fast 6 Months E78.2 - Mixed hyperlipidemia Lipid Panel 6 Months E78.2 - Mixed hyperlipidemia Complete Blood Count no Diff 6 Months E78.2 - Mixed hyperlipidemia Medications: New semaglutide (weight loss) (Wegovy) administer weeks 1 through 4 of therapy 0.25 mg (0.5 mL) subcut QWEEK 4 weeks 2 mL 0RF E66.01 - Morbid (severe) obesity due to excess calories, E78.2 - Mixed hyperlipidemia, Z68.42 - Body mass index [BMI] 45.0-49.9, adult semaglutide (weight loss) (Wegovy) administer weeks 1 through 4 of therapy 0.25 mg (0.5 mL) subcut QWEEK 4 weeks 2 mL 0RF E66.01 - Morbid (severe) obesity due to excess calories, E78.2 - Mixed hyperlipidemia, Z68.42 - Body mass index [BMI] 45.0-49.9, adult Refilled simvastatin 20 mg PO DAILY 90 days 90 tabs 1RF E78.2 - Mixed hyperlipidemia Patient Instructions: Goal: LDL to be below 160, total cholesterol to be below 240 Barriers: Adherence to physical activity and healthy eating habits Coding Level of Care Code Est Pt Level 4 (10980) Diagnoses Mixed hyperlipidemia E78.2 Hyperlipidemia type: mixed hyperlipidemia Class 3 severe obesity due to excess calories without serious comorbidity with body mass index (BMI) of 45.0 to 49.9 in adult E66.01; Z68.42 Obesity type: due to excess calories Obesity classification: adult class 3 (BMI >= 40) Serious obesity comorbidity presence: without serious comorbidity Body mass index: BMI 45.0-49.9
[2024-02-23 09:53] VITALS: BP 124/82; PULSE 95; O2SAT 97; BMI 49.5
== END 2024-02-23 10:15 | disposition home or self-care (01) ==
PROVIDERS: PCP Physician Assistant; Visit Provider Physician Assistant
DX: E78.2 Mixed hyperlipidemia (principal); E66.01 Morbid (severe) obesity due to excess calories; Z68.42 Body mass index [BMI] 45.0-49.9, adult
CPT/HCPCS: 99214

== ENCOUNTER → 2024-03-03 12:07 | Outpatient (RCR) | payer OTHER, SELFPAY ==
[2020-10-11 13:35] VITALS: BP 152/72; PULSE 68; RESP 18; TEMP 36.2; O2SAT 97; BMI 47.2
[2020-10-11] MEDS: metHOTREXate sodium 125 MG/5 ML SYRINGE 117 MG IM (13:53)
--- NOTE | 2020-10-11 14:06 | MHC.HEMONC ---
Patient of Dr. Whipple sent for Methotrexate injection for ectopic . VSS, labs reviewed. Patient tolerated injection- given in two doses. Patient instructed to call Dr Whipple with any pain or bleeding.
== END | disposition home or self-care (01) ==
LOC: HO.ONC 10-11 13:01
PROVIDERS: PCP Physician Assistant; Visit Provider Obstetrics & Gynecology
DX: O00.90 Unspecified ectopic pregnancy without intrauterine pregnancy (principal)
CPT/HCPCS: 96401; J9250

== ENCOUNTER 2024-03-31 09:33 | Outpatient (AMB) | payer OTHER, SELFPAY ==
--- NOTE | 2024-03-31 09:42 | A.OFFPC_ITS ---
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 Accompanied by: Self / Same As Patient Allergies No Known Allergies Allergy (Verified 03/31/24 10:03) Medication List - Last Reconciled 03/31/24 by Ang Whittaker PA-C biotin 500 mcg PO DAILY cholecalciferol (vitamin D3) 125 mcg PO DAILY clonazepam (Klonopin) 1 mg PO BEDTIME PRN 14 days ibuprofen 800 mg PO Q8H PRN 30 days semaglutide (weight loss) (Wegovy) 1 mg (0.5 mL) subcut QWEEK 4 weeks simvastatin 20 mg PO DAILY 90 days vitamin B complex (B Complex-Vitamin B12 tablet) 1 tab PO DAILY 90 days Tobacco use date assessed: 08/19/23 Dental Screening Dental Screen Date: 08/19/23 HPI f/u weight HPI Details Patient is a 44 year-old female here today for follow-up visit. ?Patient has a past medical history significant for varicose veins of lower extremities, hyperlipidemia. .. Hyperlipidemia: Lipid panel showing elevated total cholesterol. Has unfortunately gained weight since last office visit She has not been completely compliant with the use cholesterol medication. .. Obesity:? We discussed her weight at last visit patient was interested in starting a GLP 1. Has started wegovy weekly and has lost a few lb. She now feels motivated to continue her weight loss journey. Laboratory Tests 08/17/23 02/22/24 08:10 06:43 Cholesterol 247 H 245 H PFSH Medical History History of ectopic HLD (hyperlipidemia) Surgical History H/O LEEP History of section H/O prior ablation treatment (~04/2020) Ankle fracture, right (~2011) Family History Father Hypertension Mother Diabetes Maternal Grandmother Stomach cancer Maternal Grandfather No problems noted. Paternal Grandmother No problems noted. Paternal Grandfather Lung cancer Social History Housing: Condominium Alcohol intake: current Alcohol intake frequency: holidays/special occasions only Alcohol type: beer Patient Tobacco Use Status: Never used Tobacco e-Cigarette/Vaping Use: Never Used Second Hand Smoke Exposure: No service: No Current occupational status: employed Current occupation: [employer] Current occupational exposures/hazards: No Sexual orientation: Straight/Heterosexual Gender identity: Female Cognitive needs: No Hearing needs: No Vision needs: No Questionnaire Thrive Questionnaire Date Thrive assessed: 08/19/23 Are you currently unemployed and looking for a job?: No MICHAEL-7 AMB Questionnaire MICHAEL-7 Date MICHAEL - 7 assessed: 08/19/23 Source: Developed by Drs. Dave Salguero, Melanie Banuelos, Donta Adams and colleagues, with an educational raf from [employer]. Review of Systems Const Denies headache(s) Eyes Denies loss of vision ENT Denies vertigo, Denies dizziness, Denies headache(s) and Denies sore throat Card Denies chest pain, Denies leg edema and Denies lightheadedness Resp Denies cough, Denies hemoptysis and Denies wheezing GI Denies abdominal pain, Denies melena, Denies constipation, Denies diarrhea and Denies vomiting Denies urinary frequency, Denies dysuria and Denies urinary urgency Musc Denies arthralgias, Denies joint swelling, Denies numbness and Denies tingling Neuro Denies Abnormal speech present, Denies behavioral changes, Denies vertigo, Denies dizziness, Denies headache(s), Denies loss of vision, Denies memory loss, Denies numbness and Denies tingling Psych Denies anxiety, Denies behavioral changes, Denies depression, Denies memory loss and Denies panic attacks Joshua/Lymph Denies easy bleeding and Denies easy bruising Aller/Immun Denies wheezing Physical exam (Primary Care) Vital Signs: Last Vital Signs Pulse 78 03/31/24 09:43 BP 122/80 03/31/24 09:43 Pulse Ox 98 03/31/24 09:43 Oxygen Delivery Method Room Air 03/31/24 09:43 BMI result Body Mass Index 48.5 Tobacco/Smoking Status: Tobacco use Status Tobacco use date assessed 08/19/23 03/31/24 09:42 Patient Tobacco Use Status Never used Tobacco 03/31/24 09:42 e-Cigarette/Vaping Use Never Used 03/31/24 09:42 Thrive Assessment: Date of Thrive Assessment Date Thrive assessed 08/19/23 03/31/24 09:42 Const General: healthy appearing, no acute distress, alert and awake Nutritional Appearance: well nourished Orientation/consciousness: oriented to person, oriented to place and oriented to time HENMT Ears: TM's normal bilaterally General nose exam: Normal nasal mucous membranes and turbinates present Eyes Conjunctivae: conjunctivae normal Sclerae: sclerae normal Pupils: Equal, round and reactive pupils present Neck Neck: Yes no lymphadenopathy and Yes no JVD Thyroid: Thyroid normal Carotids: no bruits Resp Effort & Inspection: normal respiratory effort and not tachypneic Auscultation: no crackles, no rales, no rhonchi and no wheezes Cardio Rate: regular rate Rhythm: regular rhythm Heart sounds: no murmurs and normal S1 and S2 GI Palpation (GI): Soft to palpation, nontender, no hepatomegaly and no s plenomegaly Auscultation: normal bowel sounds Skin General skin exam: no rashes or lesions noted and dry skin Neuro General: oriented to person, oriented to place and oriented to time Cranial nerves: Yes Equal, round and reactive pupils present Speech: No Abnormal speech present Gait exam (Neuro): Normal gait present Motor exam (neuro): no tremor noted Extrem Right upper extremity: full ROM Left upper extremity: full ROM Right lower extremity: full ROM; no edema Left lower extremity: full ROM; no edema Psych Mental Status: mental status grossly normal Speech and movement: Normal speech and movement present Affect: normal affect Attitude: cooperative Thought process: Normal thought process present Assessment and Plan Assessment & Plan (1) Obese: Code(s): E66.9 - Obesity, unspecified Qualifiers: Obesity type: due to excess calories Obesity classification: adult class 3 (BMI >= 40) Serious obesity comorbidity presence: without serious comorbidity Body mass index: BMI 45.0-49.9 Qualified Code(s): E66.01 - Morbid (severe) obesity due to excess calories; Z68.42 - Body mass index [BMI] 45.0- 49.9, adult Plan: Patient has started Wegovy for weight loss in his noted some weight loss. She is not motivated to be more physically active and adapt to better eating habits well. Will continue her on 1 mg Wegovy weekly for now Medications: New lidocaine 5% leave on most painful area for up to 12 hrs 1 patch topical DAILY 30 days 30 ea 2RF M54.50 - Low back pain, unspecified Coding Level of Care Code Est Pt Level 3 (49494) Diagnoses Class 3 severe obesity due to excess calories without serious comorbidity with body mass index (BMI) of 45.0 to 49.9 in adult E66.01; Z68.42 Obesity type: due to excess calories Obesity classification: adult class 3 (BMI >= 40) Serious obesity comorbidity presence: without serious comorbidity Body mass index: BMI 45.0-49.9
[2024-03-31 09:43] VITALS: BP 122/80; PULSE 78; O2SAT 98; BMI 48.5
== END 2024-03-31 10:12 | disposition home or self-care (01) ==
PROVIDERS: PCP Physician Assistant; Visit Provider Physician Assistant
DX: E66.01 Morbid (severe) obesity due to excess calories (principal); Z68.42 Body mass index [BMI] 45.0-49.9, adult

== ENCOUNTER → 2024-03-31 09:33 | Outpatient (BNVA) | payer OTHER, SELFPAY | PROVIDERS: PCP Physician Assistant; Visit Provider Physician Assistant | DX: E66.01 Morbid (severe) obesity due to excess calories (principal); Z68.42 Body mass index [BMI] 45.0-49.9, adult; Z71.3 Dietary counseling and surveillance | CPT/HCPCS: 99212 ==

== ENCOUNTER 2024-06-07 10:25 | Outpatient (AMB) | payer OTHER, SELFPAY ==
--- NOTE | 2024-06-07 10:27 | A.OFFVIS_ITS ---
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 Doing well with no concerns. Regular monthly menses, end of cycle today. Currently is not sexually active. She denies vaginal itching and irritation. STI screening offered; she declines. She tries to eat healthy and stays active with exercise. Denies family history of breast, ovarian or colon cancer. Last pap smear 2021, negative. History of LEEP age 22. Mammogram: 2023. [facility] Medical History (Updated 06/07/24 @ 10:41 by Krisat Pérez CNM) History of ectopic HLD (hyperlipidemia) Surgical History (Updated 06/07/24 @ 10:42 by Krista Pérez CNM) H/O LEEP History of section H/O prior ablation treatment (~04/2020) Ankle fracture, right (~2011) Family History Father Hypertension Mother Diabetes Maternal Grandmother Stomach cancer Maternal Grandfather No problems noted. Paternal Grandmother No problems noted. 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 Current occupational exposures/hazards: No Sexual orientation: Straight/Heterosexual Gender identity: Female Cognitive needs: No Hearing needs: No Vision needs: No Female Reproductive History Menstrual Duration of menses: 3-5 days Date of last menstrual period: 06/03/24 control method: none Total pregnancies: 5 Full term: 3 Premature: 1 (Twins @8 months) Number of Living Children: 5 Ectopics: 1 Multiple births: 1 Date of last pap smear: 12/06/21 (neg pap and hpv) History of abnormal pap smear: Yes (hx leep) Date of Mammogram: 08/11/23 (neg) Review of Systems Const All systems reviewed & are unremarkable except as noted in HPI and below Reports as per HPI Eyes Reports no additional complaints ENT Reports no additional complaints Card Reports no additional complaints Resp Reports no additional complaints GI Reports as per HPI and Reports no additional complaints Reports as per HPI Musc Reports no additional complaints Skin/Breast Reports as per HPI Neuro Reports no additional complaints Psych Reports no additional complaints Endo Reports no additional complaints Joshua/Lymph Reports no additional complaints Aller/Immun Reports no additional complaints Physical Exam Vital Signs: Last Vital Signs BP 112/74 06/07/24 10:29 BMI result Body Mass Index 46.2 Const General: cooperative, healthy appearing, no acute distress, well developed and alert Orientation/consciousness: patient oriented x3 HEENT Head: Yes normal to inspection Eyes General: appearance normal, both eyes and all related structures Neck Neck: Yes normal visual inspection Thyroid: Thyroid normal Chest Chest palpation & inspection: normal inspection of the chest and other (no puckering, dimpling, peau de orange, retraction, discharge, masses) Breast/axilla inspection: normal inspection of the breasts Breast/axilla palpation: normal palpation of the breasts Resp Effort & Inspection: normal respiratory effort GI Inspection: Yes normal to inspection Palpation (GI): Soft to palpation Rectal Exam - Female: deferred General: Yes bladder normal to palpation External Female Exam: normal external appearance, normal appearance of the urethra and No tender Speculum Exam - Vagina: normal appearance of the vagina, normal palpation, normal vaginal discharge and vaginal bleeding Speculum Exam - Cervix: normal appearance of the cervix and normal palpation Bimanual exam- vagina & uterus: normal bimanual exam, normal palpation, uterine size normal, bladder normal to palpation, normal palpation and non-tender Bimanual Exam- Adnexa, other: no masses OB/external & speculum: vaginal bleeding Skin General skin exam: no rashes or lesions noted Rashes: no rashes Neuro General: patient oriented x3 Cognition (Neuro): normal cognition Extrem General: Yes normal to inspection Psych Attitude: cooperative Thought process: Normal thought process present Assessment & Plan Assessment & Plan (1) Encounter for well woman exam with routine gynecological exam: Code(s): Z01.419 - Encounter for gynecological examination (general) (routine) without abnormal findings Category: Medical Plan Discussed: Current recommendations for pap smears per ASCCP guidelines. Pap due 2024. Breast awareness and periodic breast exams. Mammogram yearly. Maintain a healthy lifestyle including a well balanced diet and routine exercise. Colonoscopy >45, or at risk sooner. Patient verbalizes understanding and agrees to the plan of care. She was given opportunity to ask questions and all questions were answered to the best of my ability. 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 This note is constructed using voice recognition software. While every effort has been made to ensure accuracy, cloth reeler errors may have been included. Coding Level of Care Code Est Pt Prev Care 40-64y(89296) Diagnoses Encounter for well woman exam with routine gynecological exam Z01.419
[2024-06-07 10:29] VITALS: BP 112/74; BMI 46.2
== END 2024-06-07 11:37 | disposition home or self-care (01) ==
LOC: HO.HWS 10:25
PROVIDERS: PCP Physician Assistant; Visit Provider Advanced Practice Midwife
DX: Z01.419 Encounter for gynecological examination (general) (routine) without abnormal findings (principal)
CPT/HCPCS: 99396

== ENCOUNTER → 2024-06-07 10:25 | Outpatient (BNVA) | payer OTHER, SELFPAY | PROVIDERS: PCP Physician Assistant; Visit Provider Advanced Practice Midwife | DX: Z01.419 Encounter for gynecological examination (general) (routine) without abnormal findings (principal) | CPT/HCPCS: 99396 ==

== ENCOUNTER 2024-08-16 09:34 | Outpatient (REF) | payer OTHER, SELFPAY | END 2024-08-16 09:35 | disposition home or self-care (01) | LOC: HO.MAMMO 09:34 | PROVIDERS: PCP Physician Assistant; Visit Provider Physician Assistant | DX: Z12.31 Encounter for screening mammogram for malignant neoplasm of breast (principal) | CPT/HCPCS: 77063; 77067 ==

== ENCOUNTER → 2024-08-16 09:45 | Outpatient (BNV) | payer OTHER, SELFPAY | PROVIDERS: PCP Physician Assistant; Visit Provider Internal Medicine | DX: Z12.31 Encounter for screening mammogram for malignant neoplasm of breast (principal) | CPT/HCPCS: 77063; 77067 ==

== ENCOUNTER 2024-12-15 13:22 | Outpatient (AMB) | payer OTHER, SELFPAY ==
--- NOTE | 2024-12-15 13:28 | A.OFFPC_ITS ---
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 policy Accompanied by: Self / Same As Patient Allergies No Known Allergies Allergy (Verified 12/15/24 13:32) Medication List - Last Reconciled 12/15/24 by Ang Whittaker PA-C biotin 500 mcg PO DAILY cholecalciferol (vitamin D3) 125 mcg PO DAILY clonazepam (Klonopin) 1 mg PO BEDTIME PRN 14 days ibuprofen 800 mg PO Q8H PRN 30 days lidocaine 5% 1 patch topical DAILY 30 days simvastatin 20 mg PO DAILY 90 days tirzepatide (weight loss) (Zepbound) 10 mg (0.5 mL) subcut QWEEK 4 weeks tirzepatide (weight loss) (Zepbound) 15 mg (0.5 mL) subcut QWEEK 4 weeks vitamin B complex (B Complex-Vitamin B12 tablet) 1 tab PO DAILY 90 days Tobacco use date assessed: 12/15/24 Dental Screening Dental Screen Date: 08/19/23 [facility] Annual Exam HPI Details Patient is a 44 year-old female here today for for routine annual physical. ?Patient has a past medical history significant for varicose veins of lower extremities, class 3 obesity, hyperlipidemia. .. Hyperlipidemia: Patient continues on simvastatin 20 mg, will recheck lipid panel and consider stopping cholesterol med as she has lost 50 lb on GLP 1. .. Class 3 Obesity:? She has been on GLP 1 therapy over the last several months and has lost significant amount of weight. Her weight now is 229 lb, her starting weight was 279 lb. She reports she feels well in her quality life is much better. Her portions of food or much less and she is exercising 3 or 4 times a week. Colon cancer screening: Willing to do colonoscopy mammo: Mammogram done August 2024, BI-RADS 1 LEGAL AID: . 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 [facility] Medical History History of ectopic HLD (hyperlipidemia) Surgical History H/O LEEP History of section H/O prior ablation treatment (~04/2020) Ankle fracture, right (~2011) Family History Father Hypertension Mother Diabetes Maternal Grandmother Stomach cancer Maternal Grandfather No problems noted. Paternal Grandmother No problems noted. 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 1. Little interest or pleasure in doing things: not at all 2. Feeling down, depressed, or hopeless: not at all 3. Trouble falling or staying asleep, or sleeping too much: not at all 4. Feeling tired or having little energy: not at all 5. Poor appetite or overeating: not at all 6. Feeling bad about yourself - or that you are a failure or have let yourself or your family down: not at all 7. Trouble concentrating on things, such as reading the newspaper or watching television: not at all 8. Moving or speaking so slowly that other people could have noticed. Or the opposite - being so fidgety or restless that you have been moving around a lot more than usual: not at all 9. Thoughts that you would be better off or of hurting yourself in some way: not at all Total score: 0 Depression Screening Interpretation: Negative Depression Screening Done: Yes 73316 - PHQ-9 Billing: Yes Source: Developed by Drs. Dave Salguero, Melanie Banuelos, Donta Adams and colleagues, with an educational raf from [employer]. Thrive Questionnaire Date Thrive assessed: 12/15/24 I am a: Patient What is your living situation today?: I have a steady place to live Within the past 12 months, did the food you bought not last and you didn't have the money to get more?: Never true Within the past 12 months, did you worry whether your food would run out before you got money to buy more?: Never true Do you have trouble paying for medicines?: No Do you have trouble getting transportation to medical appointments?: No Do you have trouble paying your heating and electricity bill?: No Do you have trouble taking care of your child, family member or friend?: No Do you have trouble with day-to-day activities such as bathing, preparing meals, shopping, managing finances, etc.?: No Are you currently unemployed and looking for a job?: No Are you interested in more education?: No Please select the resources that you would like help with: None Currently or been in a relationship where the following occur: No concerns reported THRIVE Score: 0 AUDIT C Alcohol Use Questionnaire (AUDIT-C) 1. How often do you have a drink containing alcohol?: Monthly or less 2. How many drinks containing alcohol do you have on a typical day when you are drinking?: 1 or 2 3. How often do you have six or more drinks on one occasion?: Never Total Score: 1 MICHAEL-7 AMB Questionnaire MICHAEL-7 Date MICHAEL - 7 assessed: 12/15/24 Feeling nervous, anxious, or on edge: 0 = Not at all Not being able to stop or control worryin = Not at all Worrying too much about different things: 0 = Not at all Trouble relaxin = Not at all Being so restless that it is hard to sit still: 0 = Not at all Becoming easily annoyed or irritable: 0 = Not at all Feeling afraid as if something awful might happen: 0 = Not at all Total MICHAEL-7 score (0-4 normal; 5-9 mild; 10-14 moderate; 15-21 severe): 0 Source: Developed by Drs. Dave Salguero, Donta Sam Kroenke and colleagues, with an educational raf from [employer]. MICHAEL-7 Assessment Billing MICHAEL-7 Assessment Tool: MICHAEL-7 Assessment 44897 Review of Systems Const Denies body aches, Denies chills, Denies excessive sweating, Denies fatigue, Denies fever(s) and Denies headache(s) Eyes Denies blurry vision ENT Denies dysphagia, Denies vertigo, Denies dizziness, Denies headache(s), Denies hearing loss and Denies tinnitus Card Denies chest pain, Denies chest pain with activity, Denies syncope, Denies irregular heart rhythm and Denies dyspnea Resp Denies chest congestion, Denies cough, Denies hemoptysis, Denies dyspnea and Denies wheezing GI Denies abdominal pain, Denies melena, Denies hematochezia, Denies coffee ground emesis, Denies dysphagia, Denies diarrhea, Denies nausea and Denies vomiting Denies urinary frequency, Denies dysuria, Denies urinary hesitancy and Denies urinary urgency Musc Denies arthralgias, Denies limited range of motion, Denies muscle cramps and Denies muscle weakness Skin/Breast Denies rash and Denies skin ulcer Neuro Denies Abnormal speech present, Denies confusion, Denies vertigo, Denies dizziness, Denies syncope, Denies headache(s), Denies memory loss and Denies seizure-like activity Psych Denies anxiety, Denies confusion, Denies depression, Denies memory loss, Denies panic attacks and Denies paranoia Endo Denies excessive sweating, Denies fatigue, Denies flushing, Denies polydipsia and Denies polyuria Aller/Immun Denies wheezing Physical exam (Primary Care) Vital Signs: Last Vital Signs Temp 97.1 F 12/15/24 13:32 Pulse 114 H 12/15/24 13:32 BP 124/80 12/15/24 13:32 Pulse Ox 97 12/15/24 13:32 Oxygen Delivery Method Room Air 12/15/24 13:32 BMI result Body Mass Index 40.6 BMI Assessment/Plan discussion: High BMI High, discussed plan: lifestyle, weight reduction, dietary and physical activity Tobacco/Smoking Status: Tobacco use Status Tobacco use date assessed 12/15/24 12/15/24 13:30 Patient Tobacco Use Status Never used Tobacco 12/15/24 13:30 e-Cigarette/Vaping Use Never Used 12/15/24 13:30 PHQ-9: PHQ-9 Score PHQ-9: Total score 0 12/15/24 13:30 Depression Screening Interpretation: Negative Thrive Assessment: Date of Thrive Assessment Date Thrive assessed 12/15/24 12/15/24 13:30 Currently or been in a relationship where the following occur: No concerns reported Const General: cooperative, comfortable, no acute distress, alert and awake; No confusion Orientation/consciousness: oriented to person, oriented to place, patient oriented x3 and No confusion HENMT Head: Yes normocephalic Ears: external ears normal and TM's normal bilaterally Face and sinus: No sinus tenderness Mouth: Normal oral and palatal mucosa present and tongue normal Teeth and gingiva: dentition normal and gingiva normal Throat: Yes posterior oropharynx normal, Yes tonsils normal and Yes uvula midline Eyes Conjunctivae: conjunctivae normal Sclerae: sclerae normal Pupils: Equal, round and reactive pupils present EOM: EOMs intact bilaterally Direct Ophthalmoscopy: No no photophobia Neck Neck: Yes no lymphadenopathy, No tender and Yes no JVD Thyroid: Thyroid normal Carotids: no bruits Chest Chest palpation & inspection: no tenderness Resp Effort & Inspection: normal respiratory effort, no audible wheezes, not labored and no stridor Auscultation: no crackles, no rales, no rhonchi and no wheezes Cardio Jugular venous distension: no JVD Rate: regular rate, not bradycardic and not tachycardic Rhythm: regular rhythm Bruits: no carotid bruits Peripheral pulses: Peripheral pulses 2+ throughout GI Inspection: Yes normal to inspection, No abdominal wall ecchymosis and No visible herniation Palpation (GI): Soft to palpation, nontender, no guarding, not rigid and No hepatosplenomegaly present Auscultation: normoactive bowel sounds General: Yes no CVA tenderness Back/Spine/Pelvis Back: no CVA tenderness and No back tenderness Cervical Spine: cervical ROM normal Thoracic/Lumbar Spine: thoracic and lumbar spine normal to inspection, straight leg raise negative bilaterally, No thoraco-lumbar ROM limited and No lumbar spinal tenderness Skin Lesions: no lesions Rashes: no rashes Wounds: no wounds Neuro General: oriented to person, oriented to place, patient oriented x3, CN's II-XI intact bilaterally and No confusion Cranial nerves: Yes Equal, round and reactive pupils present and Yes Normal accommodation reflex present Cognition (Neuro): normal cognition Speech: No Abnormal speech present Gait exam (Neuro): Normal gait present Motor exam (neuro): 5/5 motor strength present throughout Extrem Right upper extremity: full ROM; no cyanosis Left upper extremity: full ROM; no cyanosis Right lower extremity: no edema Left lower extremity: no edema Psych Appearance: grossly normal Mental Status: mental status grossly normal Affect: normal affect Attitude: cooperative Thought process: Normal thought process present Coding Level of Care Code Est Pt Prev Care 40-64y(02678) Diagnoses Annual physical exam Z00.00 Class 3 obesity E66.813 Mixed hyperlipidemia E78.2 Hyperlipidemia type: mixed hyperlipidemia Additional Codes MICHAEL-7 Assessment Billing - MICHAEL-7 Assessment Tool: MICHAEL-7 Assessment 52180 ([id number]) PHQ-9 - 06912 - PHQ-9 Billing: Yes ([id number]) Assessment & Plan Assessment & Plan (1) Annual physical exam: Code(s): Z00.00 - Encounter for general adult medical examination without abnormal findings Category: Medical Plan: As per HPI (2) Class 3 obesity: Code(s): E66.813 - Obesity, class 3 Category: Medical Plan: Patient does understand her BMI is over 40, has lost significant amount of weight since starting GLP 1, seems to have lost 50 lb. She denies any signif icant side effects from GLP 1. She has a better quality of life and her portion controls her much less. She has picked up an exercise routine. She would like to continue maximal dose of GLP 1 at this time. Her goal weight is to be 200 lb. (3) HLD (hyperlipidemia): Code(s): E78.5 - Hyperlipidemia, unspecified Category: Medical Qualifiers: Hyperlipidemia type: mixed hyperlipidemia Qualified Code(s): E78.2 - Mixed hyperlipidemia Plan: Will recheck fasting lipid panel to ensure stable. Will consider getting office simvastatin 20 mg as she has lost 50 lb on GLP 1. Goal LDL is to be below 130 Orders: Orders Complete Blood Count no Diff Today E78.2 - Mixed hyperlipidemia Comprehensive [place]. Panel Fast Today E78.2 - Mixed hyperlipidemia Lipid Panel Today E78.2 - Mixed hyperlipidemia Medications: Refilled tirzepatide (weight loss) (Zepbound) 15 mg (0.5 mL) subcut QWEEK 4 weeks 2 mL 3RF E66.01 - Morbid (severe) obesity due to excess calories, Z68.42 - Body mass index [BMI] 45.0-49.9, adult Discontinued tirzepatide (weight loss) (Zepbound) Discontinued Reason: Doctor's Order 10 mg (0.5 mL) subcut QWEEK 4 weeks 2 mL 0RF E66.01 - Morbid (severe) obesity due to excess calories, E78.2 - Mixed hyperlipidemia, Z68.42 - Body mass index [BMI] 45.0-49.9, adult Patient Instructions: Goal: LDL to be below 130, weight to be at 200 lb Barriers: Adherence to physical activity and healthy eating habits.
[2024-12-15 13:32] VITALS: BP 124/80; PULSE 114; TEMP 36.2; O2SAT 97; BMI 40.6
== END 2024-12-15 13:54 | disposition home or self-care (01) ==
LOC: HO.HMCH 13:23
PROVIDERS: PCP Physician Assistant; Visit Provider Physician Assistant
DX: Z00.00 Encounter for general adult medical examination without abnormal findings (principal); E66.813 Obesity, class 3; E78.2 Mixed hyperlipidemia; Z68.41 Body mass index [BMI] 40.0-44.9, adult

== ENCOUNTER → 2024-12-15 13:22 | Outpatient (BNVA) | payer OTHER, SELFPAY | PROVIDERS: PCP Physician Assistant; Visit Provider Physician Assistant | DX: Z00.00 Encounter for general adult medical examination without abnormal findings (principal); E66.813 Obesity, class 3; E78.2 Mixed hyperlipidemia; Z68.41 Body mass index [BMI] 40.0-44.9, adult | CPT/HCPCS: 96127; 99396 ==

== ENCOUNTER 2024-12-21 06:57 | Outpatient (REF) | payer OTHER, SELFPAY ==
[2024-12-21 07:53] LABS: Hematocrit 40.7 % (37.0-47.0); Hemoglobin 13.5 g/dl (12.0-16.0); Mean Corpuscular HGB Conc 33.2 g/dl (31.0-35.0); Mean Corpuscular Volume 87.5 fL (80.0-98.0); Mean Platelet Volume 11.5 fL (9.4-12.3); Platelet Count 226 X10*3/uL (160-400); Red Blood Count 4.65 X10*6/uL (4.20-5.50); Red Cell Distribution Width 14.6 % (11.0-16.0); White Blood Count 7.1 X10*3/uL (4.8-10.8)
[2024-12-21 08:28] LABS: Alanine Aminotransferase 13 U/L (0-31); Alkaline Phosphatase 57 U/L (39-117); Anion Gap 10 (12-20); Aspartate Amino Transferase 16 U/L (5-31); Bilirubin Total 0.7 mg/dL (0.0-1.0); Blood Urea Nitrogen 9 mg/dL (9-16); Calcium 9.3 mg/dL (8.4-10.2); Carbon Dioxide 25 mmol/L (22-29); Chloride 108 mmol/L (96-108); Cholesterol 231 mg/dL (<200); Estimated Glomerular Filt Rate > 60; Glucose Fasting 84 mg/dL (60-99); HDL Cholesterol 54 mg/dL (>40); LDL Cholesterol Calculated 154 mg/dL (<100); Potassium 3.8 mmol/L (3.3-5.1); Sodium 139 mmol/L (135-145); Total Protein 6.8 g/dL (6.5-8.0); Triglycerides 115 mg/dL (<150)
== END 2024-12-21 06:58 | disposition home or self-care (01) ==
LOC: HO.LAB 06:57
PROVIDERS: PCP Physician Assistant; Visit Provider Physician Assistant
DX: E78.2 Mixed hyperlipidemia (principal)
CPT/HCPCS: 36415; 80053; 80061; 85027

== ENCOUNTER 2025-04-17 10:36 | Outpatient (AMB) | payer OTHER, SELFPAY ==
--- NOTE | 2025-04-17 10:45 | MHC.PC.OV ---
Vital Signs 04/17/25 10:47 Height 5 ft 3 in Weight 212 lb 8 oz BMI 37.6 BP 130/64 Blood Pressure Location Lt brachial Position Sitting Pulse 74 Pulse Source Pulse Oximeter Temp 97.1 F Temp Source Temporal Artery Scan Pulse Oximetry (%) 100 Oxygen Delivery Method Room Air Intake Visit Reasons: 4mth f/u Intake Note: Patient is here to follow up on HLD. Imaging Manager Required: No Seismology Teacher: Not Required per policy Accompanied by: Self / Same As Patient Allergies No Known Allergies Allergy (Verified 04/17/25 11:00) Medication List - Last Reconciled 04/17/25 by Ang Whittaker PA-C biotin 500 mcg PO DAILY cholecalciferol (vitamin D3) 125 mcg PO DAILY clonazepam (Klonopin) 1 mg PO BEDTIME PRN 14 days ibuprofen 800 mg PO Q8H PRN 30 days lidocaine 5% 1 patch topical DAILY 30 days simvastatin 20 mg PO DAILY 90 days tirzepatide (weight loss) (Zepbound) 15 mg (0.5 mL) subcut QWEEK 4 weeks vitamin B complex (B Complex-Vitamin B12 tablet) 1 tab PO DAILY 90 days Tobacco use date assessed: 04/17/25 Dental Screening Dental Screen Date: 04/17/25 Did you have a dental visit in the last 12 months?: Yes Did you have a dental problem in the last 6 months where you did not have access to dental care?: No Was dental information given to patient?: Patient has dentist HPI 4mth f/u HPI Details Patient is a 45 year-old female here today for a follow up visit ?Patient has a past medical history significant for varicose veins of lower extremities, class 3 obesity, hyperlipidemia. 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 Hyperlipidemia: Patient continues on simvastatin 20 mg, will recheck lipid panel and consider stopping cholesterol med as she has lost 50-60 lb on GLP 1. .. Class 2 Obesity:? She has been on GLP 1 therapy over the last several months and has lost significant amount of weight. Her weight now is 212 lb, her starting weight was 279 lb. She reports she feels well in her quality life is much better. Her portions of food or much less and she is exercising 3 or 4 times a week. She has a Goal weight of 190lbs. We will consider weaning dose of GLP 1 next office visit> Laboratory Tests 02/22/24 12/21/24 06:43 07:13 RBC 4.65 Creatinine 0.82 Cholesterol 245 H 231 H PFSH Medical History History of ectopic HLD (hyperlipidemia) Surgical History H/O LEEP History of section H/O prior ablation treatment (~04/2020) Ankle fracture, right (~2011) Family History Father Hypertension Mother Diabetes Maternal Grandmother Stomach cancer Maternal Grandfather No problems noted. Paternal Grandmother No problems noted. 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 Current occupational exposures/hazards: No Sexual orientation: Straight/Heterosexual Gender identity: Female Cognitive needs: No Hearing needs: No Vision needs: Yes (Reading glasses, contacts) Questionnaire Thrive Questionnaire Date Thrive assessed: 08/15/24 I am a: Patient What is your living situation today?: I have a steady place to live Within the past 12 months, did the food you bought not last and you didn't have the money to get more?: Never true Within the past 12 months, did you worry whether your food would run out before you got money to buy more?: Never true Do you have trouble paying for medicines?: No Do you have trouble getting transportation to medical appointments?: No Do you have trouble paying your heating and electricity bill?: No Do you have trouble taking care of your child, family member or friend?: No Do you have trouble with day-to-day activities such as bathing, preparing meals, shopping, managing finances, etc.?: No Are you currently unemployed and looking for a job?: No Are you interested in more education?: No Please select the resources that you would like help with: None Currently or been in a relationship where the following occur: No concerns reported THRIVE Score: 0 MICHAEL-7 AMB Questionnaire MICHAEL-7 Date MICHAEL - 7 assessed: 12/15/24 Source: Developed by Drs. Dave Salguero, Melanie Banuelos, Donta Adams and colleagues, with an educational raf from [employer]. Review of Systems Const Denies headache(s) Eyes Denies loss of vision ENT Denies vertigo, Denies dizziness, Denies headache(s) and Denies sore throat Card Denies chest pain, Denies leg edema and Denies lightheadedness Resp Denies cough, Denies hemoptysis and Denies wheezing GI Denies abdominal pain, Denies melena, Denies constipation, Denies diarrhea and Denies vomiting Denies urinary frequency, Denies dysuria and Denies urinary urgency Musc Denies arthralgias, Denies joint swelling, Denies numbness and Denies tingling Neuro Denies Abnormal speech present, Denies behavioral changes, Denies vertigo, Denies dizziness, Denies headache(s), Denies loss of vision, Denies memory loss, Denies numbness and Denies tingling Psych Denies anxiety, Denies behavioral changes, Denies depression, Denies memory loss and Denies panic attacks Joshua/Lymph Denies easy bleeding and Denies easy bruising Aller/Immun Denies wheezing Physical exam (Primary Care) Vital Signs: Last Vital Signs Temp 97.1 F 04/17/25 10:47 Pulse 74 04/17/25 10:47 BP 130/64 04/17/25 10:47 Pulse Ox 100 04/17/25 10:47 Oxygen Delivery Method Room Air 04/17/25 10:47 BMI result Body Mass Index 37.6 BMI Assessment/Plan discussion: High BMI High, discussed plan: lifestyle, weight reduction, dietary and physical activity Tobacco/Smoking Status: Tobacco use Status Tobacco use date assessed 04/17/25 04/17/25 10:51 Patient Tobacco Use Status Never used Tobacco 04/17/25 10:51 e-Cigarette/Vaping Use Never Used 04/17/25 10:51 Thrive Assessment: Date of Thrive Assessment Date Thrive assessed 08/15/24 04/17/25 10:51 Currently or been in a relationship where the following occur: No concerns reported Const General: healthy appearing, no acute distress, alert and awake Nutritional Appearance: well nourished Orientation/consciousness: oriented to person, oriented to place and oriented to time HENMT Ears: TM's normal bilaterally General nose exam: Normal nasal mucous membranes and turbinates present Eyes Conjunctivae: conjunctivae normal Sclerae: sclerae normal Pupils: Equal, round and reactive pupils present Neck Neck: Yes no lymphadenopathy and Yes no JVD Thyroid: Thyroid normal Carotids: no bruits Resp Effort & Inspection: normal respiratory effort and not tachypneic Auscultation: no crackles, no rales, no rhonchi and no wheezes Cardio Rate: regular rate Rhythm: regular rhythm Heart sounds: no murmurs and normal S1 and S2 GI Palpation (GI): Soft to palpation, nontender, no hepatomegaly and no splenomegaly Auscultation: normal bowel sounds Skin General skin exam: no rashes or lesions noted and dry skin Neuro General: oriented to person, oriented to place and oriented to time Cranial nerves: Yes Equal, round and reactive pupils present Speech: No Abnormal speech present Gait exam (Neuro): Normal gait present Motor exam (neuro): no tremor noted Extrem Right upper extremity: full ROM Left upper extremity: full ROM Right lower extremity: full ROM; no edema Left lower extremity: full ROM; no edema Psych Mental Status: mental status grossly normal Speech and movement: Normal speech and movement present Affect: normal affect Attitude: cooperative Thought process: Normal thought process present Office Procedures Flu Questionnaire Does the patient have a severe egg allergy?: No Does the patient have severe life threatening allergies?: No Does the patient have a fever or illness today?: No Has the patient ever had Guillain-Webster Syndrome?: No Has the patient ever had any past reaction to a flu shot?: No Immunizations Fluarix [id number] (PF) 45 mcg (15 mcg x 3)/0.5 mL IM syringe Performing Provider: Ang Whittaker PA-C Performing Location[facility] [place] [facility] Administered by: Waleska Goodwin RN on 04/17/25 11:18 Dose Route Admin Location Dispensed Lot Number Expiration Date [facility] [employer] 0.5 mL IM Left Deltoid 0.5 mL [id number] 01/03/24 [id number] [employer] VIS Given Date VIS Provided VIS Publication Date 04/17/25 Single Vaccine 24 Eligibility Eligibility Date Funding Source Not [facility] Eligible 04/17/25 Private Coding Level of Care Code Est Pt Level 4 (35742) Diagnoses Mixed hyperlipidemia E78.2 Hyperlipidemia type: mixed hyperlipidemia Class 2 obesity E66.812 Assessment & Plan Assessment & Plan (1) HLD (hyperlipidemia): Code(s): E78.5 - Hyperlipidemia, unspecified Category: Medical Qualifiers: Hyperlipidemia type: mixed hyperlipidemia Qualified Code(s): E78.2 - Mixed hyperlipidemia Plan: Will recheck fasting lipid panel to ensure stable. Will consider getting office simvastatin 20 mg as she has lost 50 lb on GLP 1. Goal LDL is to be below 130 (2) Class 2 obesity: Code(s): E66.812 - Obesity, class 2 Category: Medical Plan: Patient has managed to lose more weight. She continues on highest doses Zepbound with good effect. She continues to be physically active and has a better relationship with food. She would like to continue max dose of Zepbound for now over the next 4 months and will consider weaning dose in hopes she can manage her weight without medication. Orders: Orders T Spot TB Today Z11.1 - Encounter for screening for respiratory tuberculosis Influenza [id number] Immunization Today Z23 - Encounter for immunization
[2025-04-17 10:47] VITALS: BP 130/64; PULSE 74; TEMP 36.2; O2SAT 100; BMI 37.6
== END 2025-04-17 11:45 | disposition home or self-care (01) ==
LOC: HO.HMCH 10:37
PROVIDERS: PCP Physician Assistant; Visit Provider Physician Assistant
DX: E78.2 Mixed hyperlipidemia (principal); E66.812 Obesity, class 2; Z68.37 Body mass index [BMI] 37.0-37.9, adult; Z23 Encounter for immunization

== ENCOUNTER 2025-04-17 10:36 | Outpatient (REF) | payer OTHER, SELFPAY ==
[2025-04-19 22:33] LABS: TS Negative Control Passed; TS Panel A 1; TS Panel B 0; TS Positive Control Passed; TSpotTB Negative (Negative)
== END 2025-04-17 10:37 | disposition home or self-care (01) ==
LOC: HO.LAB 10:36
PROVIDERS: PCP Physician Assistant; Visit Provider Physician Assistant
DX: Z11.1 Encounter for screening for respiratory tuberculosis (principal); Z23 Encounter for immunization; E78.2 Mixed hyperlipidemia; E66.812 Obesity, class 2; Z68.37 Body mass index [BMI] 37.0-37.9, adult; Z79.899 Other long term (current) drug therapy
CPT/HCPCS: 36415; 86481; 90471; 90656; 99212